=== PATIENT | female | born 1955 | race Caucasian/White ===

== ENCOUNTER 2017-04-20 11:26 | Inpatient (IN) | payer MEDICARE, MEDICAID ==
[~2017-04-20] VITALS: Ht 172.7 cm; Wt 101.5 kg
--- NOTE | ~2017-04-20 | PR ---
[place], [place] PROGRESS NOTE [id number] UN[facility] #: [id number] ROOM: 314 DOCTOR: Anna LOPEZ,FLORI BIRTHDATE: [birth year] DOS: 04/28/2017 SUBJECTIVE: The patient seen and spoke with the staff. Per staff, the patient only slept 2 hours. The reason maybe she got a new roommate and that roommate is more attention seeking than her, so she was worried about that. Reportedly, per nursing staff, she is still religiously preoccupied, delusional, intrusive and disruptive at times, but easily redirectable. The patient was pleasant and cooperative. She thanked me, reporting that I am a cardiothoracic surgeon who actually helped her with heart surgery. She said that she is taking her medication. She reports poor sleep, but said that "I am fine." She denied any side effect from the medication. MENTAL STATUS EXAMINATION: The patient was pleasant and cooperative, described her mood as "fine." Affect broad range, labile. Thought process disorganized. She denied auditory or visual hallucinations. She is delusional. She denied any suicidal ideation, intent or plan. She also denied any homicidal ideation, intent or plan. Insight and judgment impaired. ASSESSMENT: 1. Schizoaffective disorder. 2. MR. PLAN: 1. Continue current medication and care. We may need to readjust the medication. 2. Continue redirection. 3. Anne milieu. FLORI LOPEZ MD CM:PNLUISANA [id number] [phone] Anna LOPEZ 04/28/171935 interface
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
--- NOTE | ~2017-04-20 | PR ---
[place], [place] PROGRESS NOTE [id number] UN[facility] #: [id number] ROOM: 314 DOCTOR: Anna LOPEZ,FLORI BIRTHDATE: [birth year] DOS: 04/30/2017 PSYCHIATRIC PROGRESS NOTE SUBJECTIVE: Patient seen and spoke with the staff. Per staff, patient is a little better today and not as intrusive as before. Med compliant. Slept well last night. Patient was pleasant and cooperative. Reports doing okay. Not seems to be that animated anymore. She reports good sleep and appetite. MENTAL STATUS EXAMINATION: Patient was pleasant and cooperative. Described her mood as "okay." Affect, mood congruent. Thought process, still some disorganization. No overt delusions or paranoia noted. Denied suicidal ideation, intent or plan. She also denied homicidal ideation, intent or plan. ASSESSMENT: 1. Bipolar disorder, mixed type. 2. MR. PLAN: 1. Continue current medication and care. 2. Continue redirection. 3. Anne milieu. 4. Medication management and discharge planning by the regular team. FLORI LOPEZ MD CM:PNTRANS [phone] Anna LOPEZ 05/01/17 0002 interface
--- NOTE | ~2017-04-20 | CON ---
[place], [place] REPORT OF CONSULTATION NAME: DAQUAN MENDEZ UNIT #: [id number] ROOM: 315 DOCTOR: ADEBAYO ELIZALDE ED.D) BIRTHDATE: [birth year] DOS: 04/22/2017 HISTORY OF PRESENT ILLNESS: The patient is a 61-year-old female, referred by Dr. Acosta for competency evaluation. At the present time, this patient is on the [facility] at [facility]. She states that she is . I also spoke at length with her [id number], Olivia, who helps the patient makes decisions. The patient does follow with her regular family physician in [place], [place]. PAST MEDICAL HISTORY: Pertinent for hypertension, history of deep vein thrombosis, seizure disorder and bipolar 1 and intellectual disability -- mild. MEDICATIONS: Include Invega, Coumadin, Tegretol, Lipitor, phenobarbital, doxycycline, Zestril and lisinopril. SOCIAL HISTORY: This patient has no significant substance abuse issues. PHYSICAL EXAMINATION: She was awake, alert and oriented in all three spheres. She did manifest some delusional thoughts at times, but did fairly well during the interview. I asked her if she wanted someone to help make decisions for her and she stated that she wants to remain independent and get some assistance from her sister, but she do not want a guardian. I did speak at length with the pnpwbr-sh-rmf and she states that she was willing to help the patient and I suggested that the patient may want to give her power of ip attorney to make decisions in the event the patient is unable to do so. She will be discussing this with social media coordinator on the behavioral unit tomorrow. In my opinion, this patient is competent to make informed healthcare decisions and she states that she wants to remain so. DIAGNOSES: 1. Bipolar 1 -- mixed. 2. Intellectual disability -- mild. RECOMMENDATIONS: In my opinion, this patient is competent to make informed healthcare decisions. Thank you very much for this consult. [place], [place] REPORT OF CONSULTATION NAME: DAQUAN MENDEZ UNIT #: [id number] ROOM: 315 DOCTOR: ADEBAYO ELIZALDE ED.D) BIRTHDATE: [birth year] ADEBAYO ELIZALDE ED.D CM:CONSTR:REPORT OF CONSULTATION 1526 04/23/17 0424 interface TERRY ACOSTA MD
--- NOTE | ~2017-04-20 | PR ---
[place], [place] PROGRESS NOTE NAME[id number] #: [id number] ROOM: 314 DOCTOR: Anna LOPEZ,FLORI BIRTHDATE: [birth year] DOS: 05/01/2017 PSYCHIATRIC PROGRESS NOTE SUBJECTIVE: The patient seen and spoke with staff. Per staff, the patient is doing well. No behavioral problems or issues. Medication compliant. The patient was pleasant and cooperative. She reports doing well. She reports good sleep and appetite. Denied any depressed mood or hopelessness. She was not as tangential as before. She reports good sleep and appetite. Denied any side effect from the medication. MENTAL STATUS EXAMINATION: The patient was pleasant and cooperative, described her mood as "okay." Affect, mood congruent. Thought process goal directed. No flight of ideas or loosening of association. She denied auditory or visual hallucination. No delusion or paranoia noted. Denied suicidal ideation, intent or plan. She also denied homicidal ideation, intent or plan. ASSESSMENT: 1. Bipolar disorder. 2. Mental retardation. PLAN: 1. Continue current medication and care. 2. Continue redirection. 3. Discharge planning. FLORI LOPEZ MD CM:PARAMJIT [phone] Anna LOPEZ 05/01/17 2336 interface
--- NOTE | ~2017-04-20 | PR ---
[place], [place] PROGRESS NOTE [id number] #: [id number] ROOM: 315 DOCTOR: Anna LOPEZ,FLORI BIRTHDATE: [birth year] DOS: 04/27/2017 PSYCHIATRIC PROGRESS NOTE SUBJECTIVE: The patient seen and spoke with the staff. Per staff, the patient is still labile and intrusive, but much better than before. Medication compliant. No overt behavior problems or issues. The patient was pleasant, cooperative. She said that she slept very well, but then she went on to tangent talking about people whom she does not like and whom she does not want to interact with. She kept on going on different topics about people that she met in her life and how they affected her. She then also talked about the sign language that she learned. MENTAL STATUS EXAMINATION: The patient was pleasant and cooperative, described her mood as "fine." Affect was broad ranged and labile. Thought process goal directed with flight of ideas and loosening of association. She denied auditory or visual hallucination now. No overt delusion or paranoia noted. Somewhat religiously preoccupied. Denied suicidal ideation, intent or plan. She also denied homicidal ideation, intent or plan. Insight and judgment fair to poor. ASSESSMENT: 1. Schizoaffective disorder. 2. MR. PLAN: 1. Continue current medication and care. 2. Continue redirection. 3. Anne milieu. FLORI LOPEZ MD CM:PARAMJIT [phone] Anna LOPEZ 04/27/17 1539 interface
--- NOTE | ~2017-04-20 | PR ---
[place], [place] PROGRESS NOTE NAME: DAQUAN MENDEZ [facility] #: [id number] UNIT #: [id number] ROOM: 314 DOCTOR: Anna LOPEZ,FLORI BIRTHDATE: [birth year] DOS: 04/29/2017 SUBJECTIVE: The patient seen and spoke with the staff. Per staff, the patient is still very labile, irritable at times and psychotic also. The patient was pleasant, cooperative, but as mentioned earlier, she was having significant flight of ideas and disjointed thoughts. She is still religiously preoccupied. She was making gestures and finger and sign language at times and talking about things that does not make any sense. She was not in any acute distress. She reports doing good, otherwise; reported good sleep and appetite. She denied any side effect from the medication. MENTAL STATUS EXAMINATION: The patient was pleasant, cooperative. Described her mood as "okay." Affect, mood congruent, broad range. Thought process disorganized. She denied auditory or visual hallucination. She is delusional and religiously preoccupied. She denied suicidal ideation, intent or plan. She also denied homicidal ideation, intent or plan. Insight and judgment impaired. ASSESSMENT: 1. Bipolar disorder, mixed type. 2. Mitral regurgitation. PLAN: 1. We will increase her Invega to 9 mg in the morning. 2. I will add the Seroquel 100 mg twice a day as a mood stabilizer. 3. Continue other medication. 4. Continue redirection, shirley milieu. FLORI LOPEZ MD CM:PNTRANS 01 Anna LOPEZ 04/30/17 0039 interface
--- NOTE | ~2017-04-20 | PR ---
[place], [place] PROGRESS NOTE NAME: DAQUAN MENDEZ UNIT #: [id number] ROOM: 315 DOCTOR: TERRY RUELAS MD BIRTHDATE: [birth year] DOS: 04/25/2017 CHIEF COMPLAINT: "I am never going back to that house, those people are mean to me, you people are so nice." SUMMARY OF THE VISIT: The patient was interviewed as she sat in the dining area, engaging in activity therapy. I did interrupt and she stopped and engaged in conversation with me. She does appear somewhat depressed, a bit despondent and she is very negative about her current living situation. She seemed rather down and flat. She reports that she sleeps well, but does occasionally wake up at night. The voices have lessened in frequency and intensity and she is tolerating the Invega well. MENTAL STATUS: She is alert and oriented with some mild time gaps. Mood does seem to be depressed. Affect is somewhat flat, blunted with a constricted range. There is no orlando or hypomania. She rates the auditory hallucinations as lessening in frequency and intensity. Memory is intact. PLAN: I will maintain Invega at 6 mg a day. I will add Remeron 15 mg at bedtime to treat the depressive component. Of note, her phenobarb level is extremely low at 4.4 and she has not been experiencing any adverse events. I do believe that this phenobarb is not needed at this point, so I will discontinue and monitor, continue to engage in individual and shirley milieu activity with the ultimate plan to return home or to the least restrictive environment when stable. TERRY RUELAS MD CM:PNTRANS 17 TERRY RUELAS MD 04/25/172116 interface
--- NOTE | ~2017-04-20 | PR ---
[place], [place] PROGRESS NOTE NAME: DA[facility]ENDEZ [facility] #: [id number] UNIT #: [id number] ROOM: 315 DOCTOR: Anna LOPEZ,FLORI BIRTHDATE: [birth year] DOS: 04/26/2017 SUBJECTIVE: Patient seen and spoke with the staff. Per staff, the patient is doing well. No visual problems or issues. Medication compliant. The patient was in the day area. She reports doing well, said that she is taking her medication. She said that the other patient is her best friend, but she does not mind staying into the hospital. MENTAL STATUS EXAMINATION: The patient was pleasant, cooperative. Described her mood as "okay." Affect was broad range. Thought process, goal directed with some flight of ideas, loosening of association. She denied auditory and visual hallucination. Still, she is delusional and religiously preoccupied. Denied any suicidal ideation, intent or plan. She also denied homicidal ideation, intent or plan. ASSESSMENT: 1. Bipolar disorder, mixed type, recurrent, severe with psychotic feature. 2. Mitral regurgitation. 3. Major depressive disorder. PLAN: 1. Continue current medications and care. 2. Continue redirection. 3. Anne milieu. FLORI LOPEZ MD CM:PNTRANS 20 Anna LOPEZ 04/27/17 0247 interface
--- NOTE | ~2017-04-20 | DS ---
[place], [place] DISCHARGE SUMMARY NAME: DAQUAN MENDEZ [facility] #: [id number] UNIT #: [id number] ROOM: 314 DOCTOR: Anna LOPEZ,FLORI BIRTHDATE: [birth year] DOS: 05/02/2017 ADDENDUM Please refer to the history of present illness, past psychiatric history, past medical history, social history, substance abuse history, admission mental status examination and admission diagnosis from the psychiatric H and P. HOSPITAL COURSE: The patient got admitted for stabilization. We started her on medication, which she tolerated well with significant improvement of her mood and symptoms. During the next couple of days, the patient improved significantly. She was not suicidal. She was not homicidal. The treatment team felt that the patient got maximum benefit out of this acute hospitalization and can be discharged to a skilled facility. DISCHARGE DIAGNOSIS: Bipolar disorder. CONDITION AT THE TIME OF DISCHARGE: Stable. INSTRUCTIONS AND FOLLOWUP APPOINTMENT: 1. The patient was advised to take her medication regularly. 2. The patient was advised to go for followup regularly. FLORI LOPEZ MD CM:BERENICE [phone] Anna LOPEZ 05/03/17 0608 interface
--- NOTE | ~2017-04-20 | PR ---
[place], [place] PROGRESS NOTE NAME: DAQUAN MENDEZ UNIT #: [id number] ROOM: 315 DOCTOR: TERRY RUELAS MD BIRTHDATE: [birth year] DOS: 04/22/2017 CHIEF COMPLAINT: "There are demons after me, those people are banging on my duarte, there are demons I believe in Indie Vinos, the ____ savior, I have special colon." SUMMARY OF THE VISIT: The patient was interviewed in the dining area. She engaged readily in conversation and in fact she was rather pressured in her speech. She was intrusive after we had talked with her at length. She continued to attempt to engage us. She was very religiously preoccupied and delusional. She voiced a belief that where she was living was filled with demons and that spirits and that these people were out to get her and hurt her. She believes that she has direct contact with Indie Vinos and that because of this, she has special colon. She is grossly delusional. MENTAL STATUS: She is alert and oriented with time gaps. Mood is expansive and grandiose. She is also rather delusionally fixated on demons and Osmin. Memory for the most part is intact with gaps. PLAN: I will discontinue her Haldol and Benadryl p.r.n. in lieu of Ativan and Geodon. I will discontinue Celexa as this could be fueling orlando. I will start her on Invega 3 mg in the morning to attack the psychotic symptomatology. We will attempt to engage her in individual and shirley milieu activity with the ultimate plan to return to the least restrictive environment when psychiatrically stable. TERRY RUELAS MD CM:PNTRANS [phone] TERRY RUELAS MD 04/22/17 1113 interface
[2017-04-20] MEDS ORDERED: LIPITOR20 MG PO (11:36)
[2017-04-20] MEDS ORDERED: CELEXA20 MG PO (11:40)
[2017-04-20] MEDS ORDERED: Tegretol-Xr 20200 MG PO (11:40)
[2017-04-20] MEDS ORDERED: PHENOBARBITAL15 MG PO (11:41)
[2017-04-20] MEDS ORDERED: COLACE100 MG PO (11:41)
[2017-04-20] MEDS ORDERED: COUMADIN1 M1 PO (11:44)
[2017-04-20] MEDS ORDERED: COUMADIN5 M2 PO (11:57)
[2017-04-20] MEDS ORDERED: LISINOPRIL5 MG PO (12:00)
[2017-04-20] MEDS ORDERED: TYLENOL325 M1 PO (12:02)
--- NOTE | 2017-04-20 13:55 | NUR ---
DAQUAN MENDEZ a 61 year old F admitted via ambulance from the ADMITTING as a emergency 72 hr. hold admission. Arrived on unit at 1355. ALLERGIES: ASPIRIN. Vital signs are: 97.6-75-18 133/55. The client signed the following forms with stated understanding: Authorization For The Release of Medical Information, Clothing List, Consent to Voluntary Admission and Hospitalization, Consent and Release Forms/Receipt of Rights, Acknowledgement of Advance Directive Information, Behavioral Health Consent Form, and Informed Consent of Medications. Admitted under the services of Dr. JESSICA M.D.,[facility]. A search was conducted and hazardous articles were removed. Client was oriented to the unit. ETHAN GUZMÁN
--- NOTE | 2017-04-20 14:03 | NUR ---
DR. LALA NOTIFIED OF NEW ADMISSION, WITH MED LIST AND DIAGNOSIS LIST UPDATED.
[2017-04-20 14:06] VITALS: BP 133/55
--- NOTE | 2017-04-20 15:32 | NUR ---
PATIENT IS ALERT AND ORIENTED X 3, ABLE TO VOICE NEEDS. MOOD IS DEPRESSED AND SAD. THOUGHT PROCESS IS ORGANIZED AND GOAL DIRECTED. PATIENT SLOW TO RESPOND WHEN ASKING QUESTIONS AND RESPONDS APPROPRIATELY TO QUESITONS. DENIES ANY HALLUCINATIONS, DELUSIONS, HI/SI OR PAIN. PATIENT IS CALM AND COOPERATIVE DURING ASSESSMENT; INTERACTIVE WITH OTHER PATIENTS. CONTINENT OF BOWEL AND BLADDER WITH EPISODES OF INCONTINENCE OF BLADDER, NOT ABLE TO MAKE IT TO THE BATHROOM IN TIME. PATIENT REPORTS HAVING A FALL YESTERDAY; BED ALARM ADDED TO BED AND NON-SKID SOCKS, CONTINUES ON Q 15 MINUTE SAFETY CHECKS. CONTINUE TO MONITOR BEHAVIORS FOR ANY OUTBURST. 1:1 PROVIDED TO EXPRESS HER FEELING AND EFFECTIVE.
[2017-04-20 17:29] LABS: HEMATOCRIT 34.1 % (37.0-47.0); HEMOGLOBIN 11.4 g/dl (12.0-16.0); MEAN CELL VOLUME 96.6 fl (81.0-99.0); MEAN CORPUSCULAR HGB 32.3 pg (27.0-31.0); MEAN CORPUSCULAR HGB CONC 33.4 g/dl (33.0-37.0); MEAN PLATELET VOLUME 10.3 fl (9.6-12.3); PLATELET COUNT AUTOMATED 189 10*3/uL (130-400); RED BLOOD COUNT 3.53 10*6/uL (4.10-5.10); RED CELL DISTRI WIDTH 12.9 % (0-14.5); WHITE BLOOD COUNT 13.7 10*3/uL (4.8-10.8)
[2017-04-20 17:38] LABS: INTERNATIONAL NORM RATIO 1.8 (2.0-3.5)
[2017-04-20 17:45] LABS: ALBUMIN 3.2 gm/dl (3.1-4.5); ALKALINE PHOSPHATASE 100 U/L (45-117); BUN 15 mg/dl (7-24); CHLORIDE 111 mmol/L (98-107); CREATININE 1.02 mg/dL (0.55-1.02); POTASSIUM 3.6 mmol/L (3.5-5.1); SGOT/AST 19 IU/L (3-35); SGPT/ALT 20 U/L (12-78); SODIUM 145 mmol/L (136-145); TOTAL PROTEIN 7.1 gm/dL (6.4-8.2)
[2017-04-20 17:52] LABS: ATYPICAL LYMPHS 2 % (0-0); PLATELET SUFFICIENCY NORMAL (NORMAL); TOTAL CELLS COUNTED 100 #CELLS
[2017-04-20 17:58] LABS: CARBAMAZEPINE (TEGRETOL) TOTAL 3.6 ug/ml (4-12)
--- NOTE | 2017-04-20 18:04 | NUR ---
DR WINCHESTER NOTIFIED OF PATIENT'S COUMADIN LEVEL AT 1.8 AND NOTIFIED OF COUMANDIN ORDERS STILL NEED TO BE ORDERED. CURRENT ORDERS: COUMADIN 6MG DAILY EXCEPT SATURDAY, 5 MG TO BE GIVEN ON SATURDAY. OKAY TO GIVEN COUMADIN 5 MG TODAY AND TO PLACE THE ORDERS UNDER DR. CHEUNG PER DR WINCHESTER INSTRUCTION. WITNESSES BY SECOND NURSE, TAWNY REID RN.
[2017-04-20 18:20] LABS: VITAMIN D, 25-HYDROXY 8.5 ng/mL (30-100)
--- NOTE | 2017-04-20 18:29 | NUR ---
DR WINCHESTER NOTIFIED OF ELEVATED WBC 13.7, NOTED TO BE DOWN FROM YESTERDAY'S WBC LAB. WILL UPDATE .
[2017-04-20 19:51] VITALS: BP 140/82
--- NOTE | 2017-04-21 04:26 | NUR ---
WHEN SPEAKING TO PT FOI WAS VERY NOTICABLE. WHEN EDUCATING ON MEDICATION PT LOOKED PAST THIS NURSE AND STARTED TO TALK ABOUT SOMETHING COMPLETELY DIFFERENT THEN WENT TO HOW MUCH SHE LIKED MY SHIRT THEN WENT ON TO TALKING ABOUT DRESSING UP ON FRIDAYS THEN ON SATURDAY AND SATURDAY WOULD GO SEE HOMELESS PEOPLE AND IF THEY DIDNT HAVE IT THEY COULD HAVE IT. PT DENIED ANY SI/HI. Q15 MINUTE SAFETY CHACKS MAINTAINED. PT OBSSESSED ABOUT THE BUYLLYING THAT HAPPENED TO BRING HER HERE TO THE UNIT. POSITIVE REASSURANCE PROVIDED. PLAN. CONTINUE POSITIVE REASSURANCE. MAINTAIN Q15 MINUTE SAFETY CHECKS. ENCOURAGE PT TO SPEAK TO STAFF IF SHE HAS ANY CONCERNS, SI/HI, HALLUCINATIONS OR DELUSIONS.
--- NOTE | 2017-04-21 04:44 | NUR ---
24 HR chart check completed.
--- NOTE | 2017-04-21 06:15 | NUR ---
PT SLEPT GREATER THAN 7 HOURS. NO S/S OF DISTRESS NOTED. NO C/O PAIN.
[2017-04-21 07:26] LABS: CHOLESTEROL 127 mg/dL (<200); HDL CHOLESTEROL 78 mg/dl (40-60); LDL CHOLESTEROL 31 mg/dL (9-159); TRIGLYCERIDES 90 mg/dl (<150); VLDL CHOLESTEROL 18 mg/dL (6-40)
[2017-04-21 07:56] VITALS: BP 125/84
[2017-04-21 08:58] LABS: HEMATOCRIT 34.7 % (37.0-47.0); HEMOGLOBIN 11.6 g/dl (12.0-16.0); MEAN CELL VOLUME 95.6 fl (81.0-99.0); MEAN CORPUSCULAR HGB CONC 33.4 g/dl (33.0-37.0); MEAN PLATELET VOLUME 11.3 fl (9.6-12.3); PLATELET COUNT AUTOMATED 185 10*3/uL (130-400); RED BLOOD COUNT 3.63 10*6/uL (4.10-5.10); RED CELL DISTRI WIDTH 12.9 % (0-14.5); WHITE BLOOD COUNT 11.4 10*3/uL (4.8-10.8)
--- NOTE | 2017-04-21 09:10 | NUR ---
MADE AWARE OF VITAMIN D LEVEL OF 8.5. NEW VERBAL ORDERS WRITTEN DOWN AND READ BACK.
[2017-04-21 09:16] LABS: ATYPICAL LYMPHS 1 % (0-0); TOTAL CELLS COUNTED 100 #CELLS
[2017-04-21 09:17] LABS: PLATELET SUFFICIENCY NORMAL (NORMAL)
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
[2017-04-21 13:32] LABS: BILIRUBIN NEGATIVE (NEGATIVE); BLOOD 2+ (NEGATIVE); CLARITY SL CLOUDY (CLEAR); COLOR YELLOW (YELLOW); GLUCOSE NEGATIVE (NEGATIVE); KETONE NEGATIVE (NEGATIVE); LEUKO ESTERASE 1+ (NEGATIVE); NITRITE NEGATIVE (NEGATIVE); SPECIFIC GRAVITY 1.025 (1.005-1.030); UROBILINOGEN 0.2 E.U./dl (0.2-1.0)
[2017-04-21 13:41] LABS: BACTERIA 1+; RBC 16-20 rbc/hpf (0-2)
--- NOTE | 2017-04-21 16:55 | NUR ---
MADE AWARE PT DID NOT HAVE PT/INR DRAWN TODAY AND IS ORDERED COUMADIN. STATES OK TO GIVE COUMADIN AND HE WILL ORDER PT/INR FOR TOMORROW. ALSO MADE AWARE OF URINALYSIS RESULTS AND ELAVATED WBC OF 11.4.
--- NOTE | 2017-04-21 18:18 | NUR ---
PATIENT VOICING GRANDIOSE DELUSIONS THIS EVENING. STATING "I WILL GET THEM ALL IF THEY MAKE ME UPSET BECAUSE I HAVE A BROTHER WHO IS A SATE BOY," AMONG OTHER DELUSIONAL STATEMENTS. SPOKE WITH ENRIKE, SISTER IN LAW, WITH PATIENT PERMISSION. SISTER KEMAR STATES PATIENT DOES NOT HAVE A BROTHER WHO IS A "STATE BOY OR PHARMACY RESOURCE TECH." SISTER KEMAR ALSO STATES PATIENT HAS BEEN KNOWN TO HAVE "THESE PSEUDO-SEIZURES THAT STOP WHEN YOU START SINGING TO HER OR GIVE HER ANY KIND OF ATTENTION. I'VE NEVER SEEN HER EVER HAVE AN ACTUAL SEIZURE." FAMILY REPORTS THAT PATIENT HAS A LONG HISTORY OF MINIPULATIVE AND ATTENTION SEEKING BEHAVIOR. PATIENT WILL OFTEN TIMES "ACT LIKE SHE IS DOING SIGN LANGUAGE BUT IT'S JUST SO YOU WILL AKNOWLEDGE THAT SHE KNOWS HOW TO DO IT BUT SHE REALLY DOESN'T," PER SISTER IN LAW. ENRIKE VERIFIED THAT PATIENT IS AND HAS BEEN FOR MANY YEARS AND IS ALSO LOW FUNCTIONING AND THEY LIVE TOGETHER IN [place], [place].
[2017-04-21 20:17] VITALS: BP 121/69
--- NOTE | 2017-04-22 04:12 | NUR ---
24 HR chart check completed.
--- NOTE | 2017-04-22 05:32 | NUR ---
Pt exhibited one episode of agression and agitation with peer. Peer was ambulating the halls when pt began sreaming and flailing arms at peer stating he cant be looking at me. pt educated that behavior was not appropriate and that other patinets had rights. pt exhibiting attention seeking behavior, pt demanding to go to bed while proving care and feeding peer. pt then began screaming and flailing arms yelling "I'm having a seizure, I'm havin a seizure". pt removed from dining room and provided with quiet room to calm self. pt then began refusing to speak and using "sign language". 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 pt informed that nurse was in [address] and had observed interaction with peer and that he had not spoke to her. Pt then stated "well i dont want to be seen this way, i need to just go to bed". medication compliant with out difficulty, slept 8 hours with out inturruption. continue to present reality and limit set with patient. continue active POC
[2017-04-22 06:40] LABS: HEMATOCRIT 31.9 % (37.0-47.0); HEMOGLOBIN 10.8 g/dl (12.0-16.0); MEAN CELL VOLUME 95.5 fl (81.0-99.0); MEAN CORPUSCULAR HGB 32.3 pg (27.0-31.0); MEAN CORPUSCULAR HGB CONC 33.9 g/dl (33.0-37.0); MEAN PLATELET VOLUME 10.6 fl (9.6-12.3); PLATELET COUNT AUTOMATED 166 10*3/uL (130-400); RED BLOOD COUNT 3.34 10*6/uL (4.10-5.10); RED CELL DISTRI WIDTH 12.7 % (0-14.5); WHITE BLOOD COUNT 10.3 10*3/uL (4.8-10.8)
[2017-04-22 07:05] LABS: BUN 15 mg/dl (7-24); CHLORIDE 111 mmol/L (98-107); POTASSIUM 3.9 mmol/L (3.5-5.1); SODIUM 145 mmol/L (136-145)
[2017-04-22 07:07] LABS: INTERNATIONAL NORM RATIO 2.6 (2.0-3.5)
[2017-04-22 07:08] LABS: PLATELET SUFFICIENCY NORMAL (NORMAL); TOTAL CELLS COUNTED 100 #CELLS
--- NOTE | 2017-04-22 07:55 | NUR ---
SPOKE WITH AT [phone] REGARDING PT LABS THIS AM. PER DR. WADE HE WILL REVIEW THE LABS. NOTIFIFED OF PT 29.4, INR 2.6. NO FURTHER ORDERS AT THIS TIME.
[2017-04-22 08:00] VITALS: BP 130/70
--- NOTE | 2017-04-22 08:25 | NUR ---
TREATMENT TEAM WAS HEAD WITH THE FOLLOWING: DR. RUELAS, APPLICATION ENGINEER, RN, ATs, SWs. PT'S SISTER WANTS TO LOOK INTO GUARDAINSHIP AND ASKED FOR EVAL FOR GUARDAINSHIP. DR. RUELAS SAID REFER TO DR. ELIZALDE FOR COMPOTENCY.
--- NOTE | 2017-04-22 10:14 | NUR ---
ON UNIT TO ASSESS PT.
--- NOTE | 2017-04-22 11:10 | NUR ---
NOTIFIFED DR. ALVAREZ OFFICE OF PT COMPETNACY EVAL NEEDED.
--- NOTE | 2017-04-22 13:01 | NUR ---
Music Therapy/Reminisce/Trivia Patient was in attendence for group as well paticipated. Patient showed no signs of aggressive behavior and no out burst during group. Patient was easily redirected when she would veer off the subject in group
--- NOTE | 2017-04-22 13:01 | NUR ---
ARLETTE sent updated information so ESTRELLITA at [facility], can update "change of condition" form. for pt. anastasiiarr.
--- NOTE | 2017-04-22 14:40 | NUR ---
PHYSICAL THERAPY PAtient at group at this time. Thank you for this referral. Jovanna Juares,PT
--- NOTE | 2017-04-22 14:54 | NUR ---
Patient was not available for OT evaluation as she was asleep in bed and unable to arouse. OTR will attempt at a later date. Joan Ford OTR/dexter
--- NOTE | 2017-04-22 15:07 | NUR ---
Patient not available for Occupational Therapy evaluation as she was in group therapy session. OTR will recheck at a later date. Joan Ford OTR/dexter
--- NOTE | 2017-04-22 15:44 | NUR ---
Craft and self esteem group Patient attended group with appropriate behavior and no agression towards others. Patient rambled about pentecostal items however eaisly redirected to another topic. Patient able to state " I like to do art to help with stress" when discussing ways to cope with stress and positivie atributes about themselves.
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
[2017-04-22 20:00] VITALS: BP 131/63
--- NOTE | 2017-04-22 20:38 | NUR ---
CLIENT ORIENTED TO PERSON AND MONTH. INTRUSIVE WITH PEERS ATTEMPTING TO ORDER THEM WHERE TO GO AND WHAT TO DO. REDIRECTED TO CARING FOR SELF ONLY WITH MODERATE SUCCESS. CLIENT PLEASENT AND DENIES ANY AGGITATION OR ANGER ISSUES AT THIS TIME. REINFORCED HER TO SEEK ME OUT IF HER MOOD CHANGES. CLIENT SMILED SAID OK AND THREW ME KISSES. MEDICATION COMPLIANT AND ABLE TO MOVE SELF AROUND IN WHEELCHAIR.
--- NOTE | 2017-04-23 01:23 | NUR ---
RESTING QUIET AT THIS TIME. TURNS SELF WITHOUT ASSISTANCE
--- NOTE | 2017-04-23 03:38 | NUR ---
24 HR chart check completed.
--- NOTE | 2017-04-23 05:54 | NUR ---
SLEPT INTERMITTENTLY TONIGHT. AWOKE A FEW TIMES THINKING SHE "WAS ON DUTY" ENCOURAGED CLIENT TO GET SOME REST. MOVES SELF AROUND IN BED WITHOUT DIFFICULTY
[2017-04-23 07:10] LABS: INTERNATIONAL NORM RATIO 2.7 (2.0-3.5)
[2017-04-23 08:20] VITALS: BP 131/79
--- NOTE | 2017-04-23 11:18 | NUR ---
Physical therapy evaluation completed. Patient willing to participate and cooperative, smiling. Patient is admittedly fearful of falling and performs functional mobility with slow, cautious movements. Patient required moderate B UE push to stand from wc; self propells herself in wheelchair; required mod assit turning self in wc in her room amonst the 2 beds; gait with R AND D LAB TECHNICIAN x1 and other hand on HR in hallway 2 x 20ft turning once; slow but steady gait. Transfers and bed mobility are SBA. Patient required reminders to lock wc brakes. It seems as though patient was not using a wc prior to admission and PT goal is to have patient walking rather than using wc by DC. Continue PT for strengthening, gait, transfers, weaning from wc, safety and balance. Patient was left in the activity room with her chair alarm attached in NAD and talking with others in the activity room. Low complexity PT evaluation Thank you for this referral, Sena Garay, PT
--- NOTE | 2017-04-23 13:23 | NUR ---
Q1 Labs Game Patient was in attendence for group as well as particpated. Patient showed no signs of aggressive behavior and no outburst during group. Patient also stayed on task and did not need any redirection
--- NOTE | 2017-04-23 15:36 | NUR ---
LINDA Patient was in attendence for group this afternoon. Patient was appropriate throughout group,laughing and joking with staff and other patients. Patient showed no aggresive behaviors and had no outbursts during group activities
--- NOTE | 2017-04-23 15:42 | NUR ---
Maritza is compliant with prescribed medications. Noted to express some delusions during her conversation with staff and @ intervals is noted to be childlike in responses. She does report that she does not like"people staring @ me and making fun," when encouraged to discuss why she came to the hospital. She has been interactive with select peers and has participated in unit activities throughout the day. No seizure activity is noted. Fall precautions maintained. Dr. Acosta in to see her today. Jessica Connolly also in to see her, as well. PT @ 30.5 and INR @ 2.7. Refer to [facility] flowsheet for specific monitoring.
--- NOTE | 2017-04-23 16:06 | NUR ---
Voluntary admission form reviewed with Maritza and she did sign consent after stating that "It is to get treatment in the hospital."
--- NOTE | 2017-04-23 18:46 | NUR ---
Family members in to see Maritza and brought results of CT of head and MRI of brain completed @ another facility in October of this year. Placed on chart for physician review.
[2017-04-23 20:13] VITALS: BP 112/66
--- NOTE | 2017-04-23 21:45 | NUR ---
PLEASENT AND INTERACTIVE WITH STAFF. MOVES SELF WELL IN WHEELCHAIR. DENIES ANY PROBLEMS TODAY, STATES SHE HAD FUN COLORING PICTURES FOR EVERYONE. DENIES ANY AGGITATION OR ANGER TODAY. DISCUSSED USING COLORING A WAY TO RELIEVE HER ANGER WHEN SHE GOES HOME. CLIENT AGREED.
--- NOTE | 2017-04-24 03:30 | NUR ---
24 HR chart check completed.
--- NOTE | 2017-04-24 06:21 | NUR ---
SLEPT WELL ALL NIGHT. UP ONCE TO VOID
[2017-04-24 06:50] LABS: INTERNATIONAL NORM RATIO 2.9 (2.0-3.5)
--- NOTE | 2017-04-24 07:47 | NUR ---
PHYSICAL THERAPY Maritza seen this AM 1:1 for her physical therapy session. Pt was up in the day room in a wheelchair. Wheeled out into the james, sit/stand and pushing off from her chair with MIN A X 1, standing balance with wheeled walker MIN A X 1. Followed by gait with W/W total 200' X 2, with MIN INFANTRYMAN X 1, with cueing for gait, walker, turn safety. Working in gait balance with gait backwards, right and left side stepping, 360 turn X 2, with MOD INFANTRYMAN X 1 and cueing for everything. Pt taken back to the day room. ALEXANDRU CABALLERO RISK ASSESSMENT CONSULTANT.
[2017-04-24 08:04] VITALS: BP 126/61
--- NOTE | 2017-04-24 08:20 | NUR ---
TREATMENT TEAM WAS WARREN WITH THE FOLLOWING: DR. RUELAS, EARNEST, RESIDENT, SW, RN. MED CHANGES. DR. RUELAS WANTS TO CHECK ON NEUROLOIGIST DUE TO SEIZURE MED NOT AT THERAPUETIC LEVEL.
--- NOTE | 2017-04-24 11:52 | NUR ---
Kain:Nate Scarecrow/Reminiscing Patient was in attendence for group as well as participated. Patient needed redirected back to task several times. Patient showed no aggresive bahavior and had no outbursts throughout group
--- NOTE | 2017-04-24 12:41 | NUR ---
BULL FUCHS UPDATED ON CHEST XRAY RESULTS. NO FURTHER ORDERS AT THIS TIME.
--- NOTE | 2017-04-24 14:55 | NUR ---
PT ALERT TO PERSON,SOMEWHAT PLACE, KNOWING SHE IN THE [facility] BUT UNSURE OF WHERE, AND TIME. PT MED COMPLIANT WITHOUT DIFFICULTY. PT MOOD IS STABLE, PT CALM, INTERACTING WITH STAFF AND PEERS. NO AGGRESSIVE OR ASSAULTIVE BEHAVIOR NOTED. NO HALLUCINATIONS OR DELUSIONS NOTED. PT DENIES ANY HOMICIDAL/SUICIDAL THOUGHTS. PT UP TO WHEELCHAIR, PROPELS SELF THRU HALLS. WHEN ASKED IF PT USES WHEELCHAIR AT HOME PT STATED "NO BUT I HAVE HANDRAILS THEIR I FEEL BETTER HERE USING A WHEELCHAIR." ADVISED PT STAFF IS HERE TO ASSIST HER WITH WALKING IF NEEDED. PT STATED "I'LL ONLY USE MY WHEELCHAIR, IF SOMEONE'S NOT AROUND TO HELP ME." PT CONTINENT OF BOWEL AND BLADDER WITH EPISODES OF INCONTINENCE NOTED, CARE PROVIDED NEEDED. PLAN IS TO ENCOURAGE PT TO UTILIZE POSITIVE COPING SKILLS, MONITOR PT BEAHVIORS ON Q15 MIN SAFETY CHECKS.
--- NOTE | 2017-04-24 18:43 | NUR ---
ESTRELLITA SPOKE WITH JOEL CALVERT. PT IS NOT ALLOWED TO BE ON THE PROPERTY OF [facility]. PT WAS EVICTED FROM [facility] BUT CAN STAY. SW WILL SUBMIT PASRR FOR ATTMEPT FOR SNF DUE TO PT RECEIVING PT. PT HAS NO PLACE TO GO. GREYSON FROM [employer] ([phone]) , IS LOOKING FOR AN APARTMENT. ENRIKE THINKS ASSISTED LIVING WOULD BE OK.
--- NOTE | 2017-04-24 18:46 | NUR ---
ESTRELLITA SPOKE WITH GREYSON KLEIN CM. PT EVICTED FROM [facility] AND NOT ALLOWED ON PROPERTY OF [facility]. GREYSON STATED THERE ARE NO GROUP HOMES AVAILBLE FOR PT. ESTRELLITA INQUIRED ABOUT NF BUT GREYSON DID NOT KNOW OF ANY. ESTRELLITA WILL COMPLETE PASRR AND MAKE REFERRALS. Greyson SAID TO TRY [facility].
--- NOTE | 2017-04-24 18:48 | NUR ---
SE CALLED [facility]. THIS IS A 305 F[address] STAY FOR TRANSITION FROM HOSPITAL TO HOME. PT NOT APPROPRIATE FOR THIS FACILITY.
--- NOTE | 2017-04-24 18:49 | NUR ---
SW SENT REFERRALS TO [facility], [facility], [facility], [facility].
--- NOTE | 2017-04-24 18:49 | NUR ---
SW COMPLETED PASRR AND FAXED TO [facility].
--- NOTE | 2017-04-24 18:50 | NUR ---
MARILY GOMEZ OF [facility] INTERESTD IN TAKING PT. ADMISSION COORDINATOR WILL SPEAK WITH DON AND CALL BACK TOMORROW.
[2017-04-24 19:15] VITALS: BP 110/66
--- NOTE | 2017-04-24 21:06 | NUR ---
24 HR chart check completed.
--- NOTE | 2017-04-25 05:54 | NUR ---
PT HAS BEEN OBSERVED ON Q 15 MIN CHECKS & HAS SLEPT QUIETLY THROUGHOUT THE SHIFT PAST 2200 WITH 1 BRIEF AWAKENING TO GO TO THE BATHROOM WITH 1 STAFF ASSIST.
[2017-04-25 07:20] LABS: HEMATOCRIT 37.3 % (37.0-47.0); HEMOGLOBIN 12.5 g/dl (12.0-16.0); MEAN CELL VOLUME 95.2 fl (81.0-99.0); MEAN CORPUSCULAR HGB 31.9 pg (27.0-31.0); MEAN CORPUSCULAR HGB CONC 33.5 g/dl (33.0-37.0); MEAN PLATELET VOLUME 10.8 fl (9.6-12.3); PLATELET COUNT AUTOMATED 200 10*3/uL (130-400); RED BLOOD COUNT 3.92 10*6/uL (4.10-5.10); WHITE BLOOD COUNT 11.6 10*3/uL (4.8-10.8)
[2017-04-25 07:40] LABS: TOTAL CELLS COUNTED 100 #CELLS
[2017-04-25 07:41] LABS: PLATELET SUFFICIENCY NORMAL (NORMAL)
[2017-04-25 07:49] LABS: ALBUMIN 3.3 gm/dl (3.1-4.5); ALKALINE PHOSPHATASE 100 U/L (45-117); BUN 30 mg/dl (7-24); CHLORIDE 105 mmol/L (98-107); POTASSIUM 3.9 mmol/L (3.5-5.1); SGOT/AST 20 IU/L (3-35); SGPT/ALT 20 U/L (12-78); SODIUM 141 mmol/L (136-145); TOTAL PROTEIN 7.1 gm/dL (6.4-8.2)
[2017-04-25 07:49] LABS: INTERNATIONAL NORM RATIO 3.2 (2.0-3.5)
[2017-04-25 07:52] VITALS: BP 109/62
--- NOTE | 2017-04-25 09:22 | NUR ---
PHYSICAL THERAPY Maritza seen this AM 1:1 for her therapy session. Pt was up in the day room at this time. All transfers were MIN A X 1. Gait total 230' X 2, one sitting rest. Working in gait balance with gait backwards, right and left side stepping, and single leg stand at the window with MOD SMT TECHNICIAN X 1, and verbal cueing for everything. Followed by Maritza wanting to use her bathroom, then back up in ther day room. ALEXANDRU CABALLERO DISTRIBUTION MANAGER.
--- NOTE | 2017-04-25 11:22 | NUR ---
Exercises and remenissing Patient attended group with peers and displayed no signs of of aggression/ outburst. Patient requires frequent verbal cues to stay on task/topic due to dominating conversation/group. With redirection patient able to refocus on task. Patient continues to display progress with group activities.
--- NOTE | 2017-04-25 17:57 | NUR ---
UPON INTERACTIONS WITH DAQUAN, ATTENTION SEEKING BEHAVIORS ARE NOTED, INCLUDING SIGN LANGUAGE "LIKE" MOVEMENTS SELECTIVELY THROUGHOUT THE SHIFT. MORE EASILY REDIRECTABLE DURING BEHAVIORS NOTED. HAS BEEN INTERACTING WITH PEERS ALL THROUGHOUT THE DAY. ATTENDING AND PARTICIPATING IN GROUP THERAPY. MEDICATION COMPLIANT THROUGHOUT THE SHIFT. DENIES ANY SENSORY DISTURBANCES AND NONE ARE NOTED. DENIES ANY SI/HI. NO SEIZURE ACTIVILTY NOTED, SEIZURES PRECAUTIONS MAINTAINED. WILL CONTINUE TO ENCOURAGE PATIENT TO ATTEND AND PARTICIPATE IN GROUP THERAPY AND UTILIZE COPING SKILLS. MONITOR PATIENT VIA Q15 MIN OBSERVATIONS CHECKS. SEE [facility] FLOWSHEET FOR SPECIFIC MONITORING.
[2017-04-25 20:00] VITALS: BP 98/70
--- NOTE | 2017-04-26 05:52 | NUR ---
24 HR chart check completed.
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
--- NOTE | 2017-04-26 07:45 | NUR ---
04/25/17 Afternoon Craft: Dealing with stress Patient was in attendence as well as participated. Patient needed redirected back to craft but had no outbursts or showed no aggressive behaviors
[2017-04-26 07:49] VITALS: BP 130/76
--- NOTE | 2017-04-26 08:48 | NUR ---
PHYSICAL THERAPY Maritza seen this AM 1:1 for her therapy and was up in ther day room. Pt said that she was just not feeling well today but would try. Transfer sit/stand and up on wheeled walker standing balance with MIN A X 1. Gait just 80' X 1 and wanting to sit just very tired and weak she said. After sitting rest gait 80' X 1, W/W MOD CHIEF GROWTH OFFICER X 1, back to the day room to rest and her breakfast. ALEXANDRU CABALLERO CART PUSHER.
--- NOTE | 2017-04-26 09:32 | NUR ---
ESTRELLITA RECEIVED CALL FROM LATOYA BOARD NUCLEAR DESIGN ENGINEER JUAN ANTONIO GUO. SW GAVE INFORMATION REEQUESTED SO THAT PASRR LEVEL 2 CAN BE COMPLETED. ESTRELLITA GAVE NAME OF LATOYA RUBI WITH [facility]. JUAN ANTONIO WILL TRY TO GET A HOLD OF HER. ESTRELLITA GAVE DISCAHRGE PLAN OF GOING TO [place] FOR REHAB THEN TO AN APARTMENT OR ASSISTED LIVING FACILITY. ASSESSMENT SHOULD BE COMPLETED TODAY.
--- NOTE | 2017-04-26 10:59 | NUR ---
Positive Traits Patient was in attendence but kept falling asleep. Patient said she wanted to go to her room and lay down
--- NOTE | 2017-04-26 11:22 | NUR ---
PATIENT HAS BEEN MORE EASILY REDIRECTABLE THIS MORNING. LESS INTRUSIVE AND DISRUPTIVE THIS MORNING. MEDICATION COMPLIANT WITHOUT DIFFICULTY. NO SENSORY DISTURBANCES NOTED. DENIES ANY SI/HI. APPETITE GOOD. NO AGGRESSIVE/COMBATIVE BEHAVIORS. ATTENTION SEEKING BEHAVIORS ARE NOTED, ALTHOUGH LESS SO AT THIS TIME. WILL CONTINUE TO REDIRECT AND REORIENT NEEDED. Q15 MIN OBSERVATION CHECKS PER ORDERS.
--- NOTE | 2017-04-26 15:18 | NUR ---
Reminiscing Patient did not attend group this afternoon. Patient complained of a headache earlier and went to lay down to help relieve it
--- NOTE | 2017-04-26 18:02 | NUR ---
PATIENT WAS OBSERVED SITTING ON THE TOILET WITH EXAGGERATED CRYING NOTED, NO TEAR OBSERVED. PATIENT ATTEMPTING TO USE HAND GESTURES TO COMMUNICATE WITH STAFF AND NOT SPEAKING. THIS NURSE EXPLAINED TO PATIENT THAT SHE MUST SPEAK TO STAFF IN ORDER TO COMMUNICATE HER NEEDS. PATIENT SPEECH NONSENSICAL EXCEPT FOR SAYING "IT STINKS" REPEATEDLY. THIS NURSE PROMPTED PATIENT TO COMPLETE HER HYGIENE NEEDS AND COME OUT TO DAY ROOM. PATIENT STOPPED CRYING AND COMPLETED BATHROOM NEEDS THEN CAME OUT TO DAY ROOM AND WAS CALM AND COOPERATIVE, INTERACTING WITH PEERS. PATIENT WAS THEN OVERHEARD TELLING PEERS "WHEN THEY HEAR ME CRYING THEY COME RUNNING REAL FAST."
[2017-04-26 20:16] VITALS: BP 117/56
--- NOTE | 2017-04-27 04:21 | NUR ---
24 HR chart check completed.
--- NOTE | 2017-04-27 06:28 | NUR ---
PT CONTINUES WITH ATTENTION SEEKING AND INTRUSIVE BEHAVIOR, DUIRING 1-1 PT UNABLE TO STAY FOCUSED ON CARLYN, DECREASING GRANDIOSE DELUSIONS, CONTINUED FOI. MINIMAL REDIRECTION NEEDED FROM INTRUSIVE EPISODES. PT PROVIDED WITH SHOWER AND ORAL CARE. AMBULATING HALLS FREELY WITH WALKER. YELLOW SOCKS SINAGE AND Q 15 MIN CHECKS MAINTAINED AT THIS TIME FOR SAFETY. SEIZURE PRECAUTIONS MAINTAINED. TAKES MEDICATIONS ORDERED STATES " I LIKE IT HERE". PT PARTICIPATED IN HS GROUP AND PROVIDED INSIGHT WITH CONFUSED PEER. CONTINUE POC, CONTINUE TO ENFORCE COPING SKILLS AND LIMIT SETTING. MED EDUCATION PROVIDED PT VERBALIZED VERY MINIMAL UNDERSTANDING, CONTINUE TO REINFORCE. PT SLEPT 8 HOURS WITH FEW INTURRUPTIONS.
[2017-04-27 07:59] VITALS: BP 130/74
--- NOTE | 2017-04-27 09:00 | NUR ---
PHYSICAL THERAPY LATE ENTRY: CONTINUE TOWARDS ORIGINAL GOALS PER ORIGINAL PLAN OF CARE. NEW GOAL DATE 05/07/17. MICHELLE DAVE,PT
--- NOTE | 2017-04-27 09:15 | NUR ---
PATIENT IS ALERT AND ORIENT TO PERSON, PLACE AND TIME, ABLE TO VOICE NEEDS. MOOD IS STABLE, THOUGHT PROCESS IS PREOCCUPIED, VOICING BAHAI THOUGHTS, SINGING SONGS OF ANGLICAN. DENIES ANY HALLUCINATIONS, DELUSIONS, HI/SI OR PAIN. PATIENT IS CALM AND INTERACTIVE WITH OTHER PATIENTS AND STAFF. PATIENT IS AMBULATORY WITH WALKER, HAS STEADY GAIT. INDEPENDANT WITH ACTIVITIES OF DAILY LIVING. GOOD MEAL INTAKES WITH ADEQUATE FLUIDS. CONTINENT OF BOWEL AND BLADDER. MEDICATION COMPLIANT WITH EDUCATION PROVIDED. Q 15 MINUTE SAFETY CHECKS MAINTAINED. NO AGGRESSION NOTED, CONTINUE TO MONITOR FOR AGGRESSIONA AND REDIRECT NEEDED.
[2017-04-27 20:01] VITALS: BP 104/53
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
--- NOTE | 2017-04-28 00:48 | NUR ---
24HR CHART CHECKS COMPLETE
--- NOTE | 2017-04-28 06:15 | NUR ---
PT SLEPT >2HRS WITH FREQUENT INTERRUPTIONS. REFER TO FLOWSHEET FOR ADDITIONAL INFO
[2017-04-28 08:08] VITALS: BP 150/69
--- NOTE | 2017-04-28 11:46 | NUR ---
PT ALERT TO PERSON,PLACE AND TIME. PT MED COMPLIANT WITHOUT DIFFICULTY, MED EDUCATION PROVIDED. PT MOOD IS STABLE, PT APPEARS ANXIOUS AT TIMES. PT RESTLESS, PACING THE HALLS, UP AND DOWN OUT OF THE CHAIR. PT DENIES ANY HOMICIDAL/SUICIDAL THOUGHTS. NO HALLUCIANTIONS NOTED. PT HAS GRANDIOSE AND PARANOID DELUSIONS, STATING "IF ENRIKE CALLS, I WANT THE CALL, IT MUST BE AN EMERGENCY IF SHE CALLS, SOMETHING MUST HAVE HAPPENED. PT STATING MULTIPLE TIMES THAT SHE HAS BEEN HERE SINCE SHE WAS YOUNG. PRESENTED RELAITY TO PT, PT STATED "OH I KNOW THAT, THATS NOT WHAT I MEANT." NO AGGRESSIVE OR COMBATIVE BEHAVIOR NOTED. PT AMBULATORY WITH WHEELED WALKER, GAIT STEADY. PT CONTINENT OF BOWEL AND BLADDER WITH EPISODES OF INCONTINENCE NOTED, CARE PROVIDED NEEDED. PT SHOWERED THIS SHIFT. PLAN IS TO ENCOURAGE PT TO PARTICIPATE IN GROUPS/ACTIVITIES, MONITOR PT BEHAVIORS ON Q15 MIN SAFETY CHECKS, ENCOURAGE PT TO UTILIZE POSITIVE COPING SKILLS.
[2017-04-28 19:48] VITALS: BP 116/62
--- NOTE | 2017-04-28 22:13 | NUR ---
P#1--DISRUPTIVE AND INTRUSIVENESS WITH PEERS P- REORIENT TO PLACE AND THAT SHE IS A PATIENT NOT AN EMPLOYEE. REDIRECTED THAT SHE IS NOT PERMITTED TO BOSS PEERS AROUND P- UNDERSTAND THAT SHE IS A PATIENT AND ACCEPT HELP IN THAT COMPACITY. BE OPEN TO PARTICIPATING A CLIENT NOT AN EMPLOYEE. UNDERSTAND PERSONAL SPACE.
--- NOTE | 2017-04-28 23:57 | NUR ---
HAS BEEN UP TWICE AT THE NURSES DESK TELLING US SHE WENT TO THE BATHROOM. INFORMED HER SHE HAS HER WALKER AND DOESN'T HAVE TO LET US KNOW EACH TIME. STATES SHE HAS TO TELL THEM AT THE OTHER PLACE. REINFORCED SHE IS ABLE TO DO THINGS WITHOUT CHECKING IN SHE IS GETTING BETTER. VERBALIZED UNDERSTANDING. TOLD HER TO CALL US IF SHE HAS ANY PROBLEMS OTHERWISE
--- NOTE | 2017-04-29 02:04 | NUR ---
24 HR chart check completed.
--- NOTE | 2017-04-29 06:42 | NUR ---
SLEPT WELL PAST 2300PM
--- NOTE | 2017-04-29 08:06 | NUR ---
ESTRELLITA left VM for Althea Yeboah of [place] and Terrie Sotelo at [facility] to see if they deceided whether to accpet Pt at their facility.
[2017-04-29 08:56] VITALS: BP 138/81
--- NOTE | 2017-04-29 09:13 | NUR ---
PHYSICAL THERAPY Mrs Lowe seen this AM 1:1 for her therapy, Pt up in the day room. Transafer sit/stand CGA X 1, no LOB. Up on wheeled walker standing balance MIN A X 1. Gait total 240' X 2, one sitting rest with this. Working on gait balance with gait backwards, right and left side stepping, 360 turn with MOD BAIL BOND AGENT X 1, and cueing for each, then sitting rest. End with act Ex to bilateral LE of marching, LAQ's, and ankle pumps with verbal cueing for each Ex working in 20 reps each. Pt back in the day room for her breakfast and is improving. ALEXANDRU CABALLERO SERVICE AND REPAIR SUPERVISOR.
--- NOTE | 2017-04-29 10:02 | NUR ---
Treatment Team was held with the following: Dr. Paniagua (phone), RNs, At, SWs. MADELINE received back and approved for [facility] placement. Lila Yeboah of [place] and Deepak at [facility] are interested in Pt.
[2017-04-29 10:26] LABS: INTERNATIONAL NORM RATIO 3.2 (2.0-3.5)
--- NOTE | 2017-04-29 12:55 | NUR ---
Exercising/Reminiscing/Positive Traits. Patient did attend group this afternoon as well as participated. Patient needed redirected back to topics several times. Patient showed no aggresive behaviors or outburst during group
--- NOTE | 2017-04-29 13:24 | NUR ---
SW RECEIVED CALL BACK FROM ELLE AT [facility] INFORMING THAT FAC[facility]. ADAL STATED THAT IT WOULD BE EASIER FOR EVERYONE IF PT STAYED IN [place] WHERE SHE IS RECEIVING DD SERVICES THAN TO SWITCH IT BACK AND FORTH.
--- NOTE | 2017-04-29 15:42 | NUR ---
Craft and postive trait group Patient attended and actively participated in group. Patient able to verbalize positive traits about self and accept postive things being said. Patient requires frequent redirection back to task.
--- NOTE | 2017-04-29 18:51 | NUR ---
PATIENT IS ALERT AND CONFUSED MOST OF THE SHIFT. MOOD IS LABILE, RANGING FROM SINGING WITH ANIMATED AFFECT TO CRYING AND SAD. NO AGGRESSIVE BEHAVIORS. EASILY REDIRECTABLE WITH ATTENTION SEEKING BEHAVIORS THAT ARE LESSENED THIS SHIFT. DENIES ANY SI/HI THIS SHIFT. MEDICATION COMPLIANT WITHOUT DIFFICULTY. APPETITE GOOD THIS SHIFT, TAKING FLUIDS WELL. WILL CONTINUE TO ENCOURAGE PT TO ATTEND AND PARTICIPATE IN GROUP THERAPY. REDIRECT AND REORIENT THROUGHOUT THE SHIFT AND NEEDED.
[2017-04-29 20:04] VITALS: BP 108/62
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
--- NOTE | 2017-04-30 05:53 | NUR ---
24 HR chart check completed.
--- NOTE | 2017-04-30 06:53 | NUR ---
Q 15 MINUTE SAFETY CHECKS MAINTAINED. SLEPT > 6 HOURS THIS SHIFT. VOICES NO COMPLAINTS OF PAIN OR DISCOMFORT
[2017-04-30 08:12] VITALS: BP 121/63
--- NOTE | 2017-04-30 09:09 | NUR ---
PHYSICAL THERAPY Pt seen this AM sitting on the side of her bed independent. Transfer sit/stand, standing balance MIN A X 1. Followed by working on Pt's gait balance with gait backwards, right and left side stepping, 360 turn X 2, with MOD BOSS MINER X 1, cueing for everything with sitting rest. Then gait with wheeled walker 220' X 2, CG to MIN A X 1, no LOB. End with act Ex to bilateral LE of marching, LAQ's, ankle pumps X 20 reps each with cueing for each. Followed by taking Pt down to the day room. ALEXANDRU CABALLERO INNERSOLE MAKER.
--- NOTE | 2017-04-30 09:25 | NUR ---
TREATMENT TEAM WAS HELD WITH THE FOLLOWING: dR. LOPEZ (PHONE), RNs, AT, sw. DR. LOPEZ STATED THAT PT WAS NOT READY TO GO YET. PT PLEASANT AND COPPERATIVE.
--- NOTE | 2017-04-30 10:44 | NUR ---
BULL BIRD CNP ON UNIT TO SEE PATIENT.
--- NOTE | 2017-04-30 11:01 | NUR ---
PATIENT IS ALERT AND ORIENTED TO PERSON, PLACE AND TIME; ABLE TO VOICE NEEDS. RESPIRATIONS ARE EASY, NON-LABORED ON ROOM AIR. MOOD IS STABLE AND EUTHYMIC AT TIMES. DENIES ANY HALLUCINATIONS, DELUSIONS, HI/SI OR PAIN. INDEPENDANT WITH ACTIVITIES OF DAILY LIVING, AMBULATORY WITH WALKER; STEADY GAIT. INTERACTIVE WITH STAFF AND OTHER PATIENTS. MEDICATION COMPLAINT WITH EDUCATION PROVIDED. APPETITE IS GOOD WITH ADEQUATE FLUIDS. Q 15 MINUTE SAFETY CHECKS MAINTAINED. NO AGGRESSION NOTED SO FAR THIS SHIFT. MONITOR FOR AGGRESSION AND REDIRECT NEEDED.
--- NOTE | 2017-04-30 11:33 | NUR ---
[facility] Bin Patient attended group with appropriate behaviors. Patient able to state postive items about self and others with minimal redirection towards group. Patient stated " I had a seizure last night" during group when others was answering questions. When asked if she reported to nursing she stated "no".
[2017-04-30 20:00] VITALS: BP 108/58
--- NOTE | 2017-05-01 04:43 | NUR ---
24 HR chart check completed.
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
--- NOTE | 2017-05-01 06:58 | NUR ---
Q 15 MINUTE SAFETY CHECKS MAINTAINED. SLEPT > 8 HOURS THIS SHIFT. VOICES NO COMPLAINTS OF PAIN OR DISCOMFORT AT THIS TIME
--- NOTE | 2017-05-01 07:43 | NUR ---
04/30/17 Afternoon Self esteem Story/Coping Skills Jeopardy Patient did attend group as well as participated. Patient needed redirected back to subject several times. Patient showed no aggressive behaviors or outbursts while in group.
[2017-05-01 08:00] VITALS: BP 112/71
--- NOTE | 2017-05-01 11:08 | NUR ---
PHYSICAL THERAPY Maritza seen this AM 1:1 for her therapy. Transfer sit/stand and up on wheeled walker CG X 1, no LOB. Followed by gait 300' X 1, wheeled walker stop/start gait no LOB, sit to rest. Then working on gait balance with gait backwards right and left side stepping, 360 turn MOD HEARING EXAMINER X 1, one sitting rest. Followed by another gait 300' X 1, with W/W CG X 1, no LOB with this. End with going over her act Ex to bilateral LE in sitting with cues for each Ex. Pt gait back to the day room. ALEXANDRU CABALLERO OSTEOPATHIC NEUROLOGIST.
--- NOTE | 2017-05-01 11:12 | NUR ---
Reminiscing Patient was in attendence for group this morning as well as participated. Patient did need redirected back to subject several times. Patient showed no signs of aggressive behaviors or outburst throughout group
--- NOTE | 2017-05-01 15:49 | NUR ---
Identifying My strengths Patient was in attendence this afternoon as well as participated. Patient needed redirection back to topic just a few times during the group. Patient showed no aggressive behavior or outburst throughout group
[2017-05-01] MEDS ORDERED: MIRTAZAPINE15 M2 PO (18:10)
[2017-05-01] MEDS ORDERED: INVEGA9 MG PO (18:10)
[2017-05-01] MEDS ORDERED: QUETIAPINE FUM100 M3 PO (18:10)
[2017-05-01] MEDS ORDERED: CARBAMAZEPINE100 MG PO (18:10)
--- NOTE | 2017-05-01 18:29 | NUR ---
IMPROVEMENT IS ATTENTION SEEKING BEHAVIORS NOTED THIS SHIFT. PATIENT HAS BEEN CALM AND COPERATIVE AND MORE EASILY REDIRECTABLE WITH STAFF. HAS MADE GRANDIOSE STATEMENT X2 THIS SHIFT. MOOD IS STABLE AND EUTHYMIC. ATTENDING AND PARTICIPATING IN GROUP THERAPIES. MEDICATION EDUCATION COMPLETED WITH MOD EFFECT. MEDICATION COMPLIANT WITHOUT DIFFICULTY. POSITIVE PEER INTERACTIONS NOTED. APPETITE GOOD THIS SHIFT, TAKING FLUIDS WELL. MORE INDEPENDENT WITH ADLS. HAS BEEN CALM AND COPERATIVE TODAY, SPENDING MOST OF HER TIME OUT IN DAY ROOM. DENIES ANY SI/HI. DENIES ANY SENSORY DISTURBANCES AND NONE ARE NOTED. NO EPISODES OF DROOLING NOTED. DENIES ANY SIDE EFFECTS TO MEDICATIONS. WILL CONTINUE TO REDIRECT NEEDED. Q15 MIN OBSERVATION CHECKS PER ORDERS. SEE [facility] FLOWSHEET FOR SPECIFIC MONITORING.
[2017-05-01 19:21] VITALS: BP 110/68
[2017-05-02 05:31] LABS: THYROID STIM HORMONE (HS) 1.39 uIU/ml (0.358-4.75)
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
--- NOTE | 2017-05-02 06:09 | NUR ---
24 HOUR CHART CHECK COMPLETED.
[2017-05-02 06:27] LABS: VITAMIN D, 25-HYDROXY 23.8 ng/mL (30-100)
[2017-05-02 08:00] VITALS: BP 110/75
--- NOTE | 2017-05-02 09:21 | NUR ---
TREATMETN TEAM WAS HELD WITH THE FOLLOWING: DR. LOPEZ (PHONE), RNs, AT, SW. PT TO BE DISCHARGED TO [facility] AT [facility].
--- NOTE | 2017-05-02 09:28 | NUR ---
PHYSICAL THERAPY Patient seen this am 1:1 for therapy sitting at breakfast room table and was very pleasant this morning. Patient performed seated B LE therex, all planes, x 20 reps each to increase LE strength, followed by gait training with use of wh walker, SBA x 1, 250'x 2 while demonstrating slow, steady gait pattern with even stride. Patient also demosntrated unsteady balance during 180 degee turns and required v/c for safe walker / step sequence. Patient returned to breakfast room table and remained under staff Supervision. Will continue per POC to improve functional mobilty and transfers as tolerated. Tony Winchester, DRAMATIC CRITIC
--- NOTE | 2017-05-02 10:11 | NUR ---
PATIENT IS ALERT AND ORIENTED WITH PERIODS OF CONFUSION. SLOW TO PROCESS MOST OF THE TIME. NO AGGRESSION NOTED. DENIES ANY SI/HI OR PLAN. DENIES ANY SENSORY DISTURBANCES AND NONE ARE NOTED. MINIMAL ATTENTION SEEKING BEHAVIORS NOTED, EASILY REDIRECTABLE DURING THESE TIMES. MOOD IS STABLE AND EUTHYMIC, WITH ANIMATED AFFECT MOST OF THE TIME. MEDICATION COMPLIANT WITHOUT DIFFICULTY. MET ALL TREATMENT GOALS FOR DISCHARGE. APPETITE GOOD FOR MEALS, TAKING FLUIDS WELL. POSITIVE PEER INTERACTIONS NOTED ALTHOUGH CAN BE MILDLY INTRUSIVE WITH PEERS, EASILY REDIRECTABLE. ATTENDING AND PARTICIPATING IN GROUP THERAPY THGOUGHOUT THE SHIFT. SEE [facility] FLOWSHEET FOR SPECIFIC MONITORING.
--- NOTE | 2017-05-02 13:24 | NUR ---
Fly/Surinder Patient did attend group this morning as well as participated. At one point patient needed to leave room due to being upset that another patient was leaving. Patient did return to group after she was able to calm herself. While in group patient exhibited no aggressive behaviors or outbursts
--- NOTE | 2017-05-02 13:55 | NUR ---
ON UNIT AND MADE AWARE PATIENT TO BE DISCHARGE THIS AFTERNOON AND MEDICAL MEDICATION NEED TO BE RECONCILED FOR DISCHARGE.
--- NOTE | 2017-05-02 14:00 | NUR ---
ESTRELLITA SPOKE WITH Honorio AT [facility] AT [facility]. HONORIO WILLING TO ACCEPT PT AND REQUESTED PASRR BE SENT SENT. ESTRELLITA FAXED PASRR AND RESULTS TO FACILITY. ESTRELLITA CALLED DD BO[employer] TO GET THOSE RESUILTS AND FAXED THEM TO FACILITY. TRANSPORATION WAS ARRANGED TO TRANSPROT PT TO FACILTY. JOEL CALVERT WAS NOTIFIED THAT PT WAS BEING TRANSPORATED AROUND 7PM. ENRIKE TO MEET PT AT FACILITY. PT TO BE DISCHARGED MARCIA BLISS AT [facility].
[2017-05-02] MEDS ORDERED: Vitamin D PO (14:27)
--- NOTE | 2017-05-02 15:40 | NUR ---
Fears Patient was in attendence for group as well as participated. Patient needed redirectied back to topic several times but showed no aggresive behaviors or outbursts during group
--- NOTE | 2017-05-02 15:50 | NUR ---
MADE AWARE OF INCORRECT D/C MEDICATION REC. MADE AWARE OF SPECIFIC DISCREPANCIES. STATES WILL FIX MED REC.
[2017-05-02] MEDS ORDERED: COUMADIN5 M2 PO (15:53)
[2017-05-02] MEDS ORDERED: COUMADIN1 M1 PO (15:53)
--- NOTE | 2017-05-02 16:23 | NUR ---
ATTEMPT MADE TO GIVE NURSE TO NURSE. LEFT NAME AND NUMBER WITH MESSAGE TO CALL UNIT FOR NURSE TO NURSE REPORT WITH [facility]. AWAITING RETURN CALL AT THIS TIME.
--- NOTE | 2017-05-02 16:33 | NUR ---
NURSE TO NURSE GIVEN TO YOGI TORREZ [facility] AT [facility]. MEDICATION REVIEWED. ALL QUESTIONS ANWSERED.
--- NOTE | 2017-05-03 07:56 | NUR ---
PHYSICAL THERAPY CO-SIGN I approve of the Phyical Therapy notes written above. MICHELLE DAVE PT
== END 2017-05-02 18:14 | disposition other institution (70) | DRG 885 ==
LOC: 3N 11:26
PROVIDERS: Emergency Medicine; Family Medicine Adult Medicine; Psychiatry & Neurology Psychiatry; Registered Nurse; ADMIT Psychiatry & Neurology Psychiatry
DX: F31.64 Bipolar disorder, current episode mixed, severe, with psychotic features (principal); F70 Mild intellectual disabilities; N39.0 Urinary tract infection, site not specified; I34.0 Nonrheumatic mitral (valve) insufficiency; R79.1 Abnormal coagulation profile; G40.909 Epilepsy, unspecified, not intractable, without status epilepticus; T45.515A Adverse effect of anticoagulants, initial encounter; I10 Essential (primary) hypertension; Z86.718 Personal history of other venous thrombosis and embolism; Z79.01 Long term (current) use of anticoagulants; Z90.710 Acquired absence of both cervix and uterus; Z90.49 Acquired absence of other specified parts of digestive tract; Z83.3 Family history of diabetes mellitus; Z79.899 Other long term (current) drug therapy

== ENCOUNTER 2017-07-20 22:45 | Inpatient (IN) | payer MEDICARE, MEDICAID ==
[~2017-07-20] VITALS: Ht 172.7 cm; Wt 101.6 kg
--- NOTE | ~2017-07-20 | PR ---
[place], [place] PROGRESS NOTE NAME: DAQUAN MENDEZ UNIT #: [id number] ROOM: 317 DOCTOR: TERRY RUELAS MD BIRTHDATE: [birth year] DOS: 07/25/2017 CHIEF COMPLAINT: "I am too tired. I do not want to eat." SUMMARY OF THE VISIT: The patient was interviewed in the dining area. She was reclining in a Zoila chair with her food in front of her. She engaged minimally in conversation and reported that she was too tired to eat and preferred to go back to bed. Nurses report that yesterday she continued to exhibit significant mood lability and continued to throw herself purposefully on the floor or hit herself in the head. She required p.r.n. intervention, which eventually worked, but has now led to some daytime somnolence. MENTAL STATUS: She is alert and oriented with time gaps. Mood does still seem to be labile. Affect is inappropriate. There are no overt auditory or visual hallucinations, although it is very difficult to get information from her. Memory has gaps. PLAN: Given the fact that she is on a good dose of Risperdal, but continues to exhibit mood lability and agitation, I will discontinue the Risperdal due to ineffectiveness and start her on Vraylar 1.5 mg at bedtime. We will attempt to limit the p.r.n. usage if at all possible to prevent somnolence. Engage in individual and shirley milieu activity with the ultimate plan to return to the least restrictive environment when psychiatrically stable. TERRY RUELAS MD CM:PNTRANS [id number] TERRY RUELAS MD 07/25/17 0845 interface
--- NOTE | ~2017-07-20 | PR ---
[place], [place] PROGRESS NOTE [id number] UNIT #: [id number] ROOM: 317 DOCTOR: Anna LOPEZ,FLORI BIRTHDATE: [birth year] DOS: 08/04/2017 PSYCHIATRIC PROGRESS NOTE SUBJECTIVE: Patient seen and spoke with the staff. Per staff, patient is doing well. No behavioral problems or issues, med compliant and is going to get discharged soon. Patient is pleasant and cooperative. She said that her mood is "pretty good." She says she slept well and her appetite is good. She denied any problems or concerns. MENTAL STATUS EXAMINATION: Patient was pleasant, cooperative. Described her mood as "good." Affect, mood congruent. Thought process disorganized at times. She denied auditory or visual hallucination. No delusion or paranoia noted. She denied suicidal ideation, intent or plan. She also denied homicidal ideation, intent or plan. ASSESSMENT: 1. Brief psychotic disorder. 2. Schizoaffective disorder. PLAN: 1. Continue current medication and care. 2. Encourage activity and groups. 3. Final medication management and discharge plan by the regular team. FLORI LOPEZ MD CM:PARAMJIT [phone] Anna LOPEZ 08/04/172324 interface
--- NOTE | ~2017-07-20 | PR ---
[place], [place] PROGRESS NOTE [id number] #: [id number] ROOM: 317 DOCTOR: Anna LOPEZ,FLORI BIRTHDATE: [birth year] DOS: 08/03/2017 SUBJECTIVE: The patient seen and spoke with the staff. Per staff, the patient is doing well. No behavioral problems or issues. Medication compliant. Medicine is following her for PT and INR. She slept 7-8 hours last night. The patient was pleasant, cooperative. She was in the day area. She denied depressed mood or hopelessness. She reported good sleep and appetite. She denied any side effect from the medication. She was not in any distress. MENTAL STATUS EXAMINATION: The patient was pleasant and cooperative. Described her mood as "good." Affect, mood congruent. Thought process goal directed. No flight of ideas or loosening of association. She denied auditory or visual hallucination. No delusion or paranoia noted. She denied suicidal ideation, intent or plan. She also denied homicidal ideation, intent or plan. ASSESSMENT: 1. Schizoaffective disorder. 2. Brief psychotic disorder. PLAN: 1. Continue current medication and care. 2. Encourage activity and groups. 3. Continue redirection. 4. Final medication management and this explained by the regular team. FLORI LOPEZ MD CM:PARAMJIT [id number] Anna LOPEZ 08/03/17 2346 interface
--- NOTE | ~2017-07-20 | PR ---
[place], [place] PROGRESS NOTE NAME: [id number] UN[facility] #: [id number] ROOM: 317 DOCTOR: TERRY RUELAS MD BIRTHDATE: [birth year] DOS: 07/29/2017 CHIEF COMPLAINT: "I don't want breakfast." SUMMARY OF THE VISIT: The patient was interviewed as she sat in the dining area. She was waiting for breakfast tray and when I asked her if she was interested, she told me she was not hungry and did not want to be bothered. She continues to look very regressed and her responses now are very short. There is a great deal of processing slowness and then her responses tend to be short and dismissive. Nurses report that she is not as interactive as she had been previously and she has not been ambulating like she did prior to her admission. MENTAL STATUS: She is alert and oriented to self, possibly place, certainly not to time. Mood seems overwhelmingly depressed. Affect is flat and blunted with a constricted range. There is no symptom suggestive of hypomania or orlando. Likewise, there are no overt auditory or visual hallucinations present. No delusions are voiced. No paranoia is present. She does process slowly and her thoughts are sparse. Short term memory has gaps. PLAN: A screening CBC with diff showed a markedly elevated white count of 12.7. I will check a UA and a chest x-ray to rule out infection and then allow the hospitalist to intervene if needed. I will lower her Vraylar from 6 mg at bedtime to 3 mg at bedtime to see if we can lessen some of the extrapyramidal symptoms that seem to be literally weighing her down. We will obtain a swallow evaluation as well. Engage in individual and shirley milieu activities, returning to the least restrictive environment when psychiatrically stable. TERRY RUELAS MD CM:PNTRANS [id number] TERRY RUELAS MD 07/29/17 1048 interface
--- NOTE | ~2017-07-20 | PR ---
[place], [place] PROGRESS NOTE NAME: DAQUAN MENDEZ UNIT #: [id number] ROOM: 317 DOCTOR: TERRY RUELAS MD BIRTHDATE: [birth year] DOS: 07/22/2017 CHIEF COMPLAINT: "Good morning. What do I do." SUMMARY OF THE VISIT: The patient was interviewed first in the hallways and later as she was about to sit down in the dining area. She seemed to have a great deal of processing difficulty. She could not tell me exactly how long she has been here or why she came here or even where she was prior to coming in here. When I did toss out the name of Deepak at [facility], she in a perplexed manner nodded her head and said that might be right. Staff note that they attempted to have her sit down for breakfast, she took 1 bite of yogurt and then got up and started wandering around pacing again. It has been very hard to get her redirected and sustaining focus enough to be able to have . MENTAL STATUS: She is alert and oriented to self, possibly place, but not time. Mood seems to be somewhat labile. Affect at times is inappropriate. There is the hint of some manic to hypomanic behavior. Memory seems very poor. PLAN: At this point, I will check valproic acid level in the morning. I will start her on Exelon patch 4.6 mg daily due to the cognitive issues that she seems to be experiencing. We will engage her in individual and shirley milieu activity with the plan then to return to the least restrictive environment when psychiatrically stable. TERRY RUELAS MD CM:PNTRANS [phone] TERRY RUELAS MD 07/22/17 0954 interface
--- NOTE | ~2017-07-20 | PR ---
[place], [place] PROGRESS NOTE NAME: DAQUAN MENDEZ UNIT #: [id number] ROOM: 317 DOCTOR: TERRY RUELAS MD BIRTHDATE: [birth year] DOS: 07/28/2017 CHIEF COMPLAINT: "I am cold." SUMMARY OF THE VISIT: The patient was interviewed in the dining area where she sat in a Zoila chair and she was shivering or tremoring. She did have some bilateral upper extremity tremor, but also reported that she was cold and requested a heated blanket. Nurses report that she is not sleeping well at night either. Her appetite remains suspect. MENTAL STATUS: She is alert and oriented with gaps. Mood does seem to be more euthymic. Affect is more appropriate. There is no hypomania or orlando. There is no overt agitation or aggression. Memory has gaps. PLAN: I will discontinue Remeron due to ineffectiveness and start her on trazodone 150 mg at bedtime to combat both depression and to aid sleep. I will start Artane 2 mg twice a day to decrease the tremor and renew her Ativan p.r.n. in case she requires intervention. TERRY RUELAS MD CM:PNTRANS [id number] TERRY RUELAS MD 07/29/17 0036 interface
--- NOTE | ~2017-07-20 | CON ---
[place], [place] REPORT OF CONSULTATION NAME: DAQUAN MENDEZ UNIT #: [id number] ROOM: 317 DOCTOR: ADEBAYO ELIZALDE ED.D (WILLARD) BIRTHDATE: [birth year] DOS: HISTORY OF PRESENT ILLNESS: The patient is a 62-year-old female referred by Dr. Acosta for competency evaluation. At the present time, this patient is on the senior behavioral health unit at [facility]. She had a great deal of difficulty communicating today. She only indicated that she was after I asked her direct question. She had difficulty retrieving information. She does have a durable power of prosecuting attorney for healthcare and in my opinion, this power of prosecuting attorney should be utilized due to the fact that this patient is really not competent to make informed healthcare decisions at this time. PAST MEDICAL HISTORY: Pertinent for history of DVT, seizure disorder, bipolar 1, intellectual disability -- mild and hypertension. MEDICATIONS: Include Exelon patch, Risperdal, Remeron, and Ativan. SOCIAL HISTORY: This patient does not have any substance abuse to my knowledge. PHYSICAL EXAMINATION: She was awake, alert and oriented to person only. She had no idea where was and she did not know the year. She does not know who her physician is or why she is here. She is clearly not able to make independent decisions at this time. DIAGNOSES: 1. Bipolar 1 -- mixed. 2. Intellectual disability -- mild. RECOMMENDATIONS: In my opinion, this patient is not competent to make informed healthcare decisions and all decision should be made by her healthcare power of prosecuting attorney. Thank you very much for this consult. ADEBAYO ELIZALDE ED.D CM:CONSTR:REPORT OF CONSULTATION 1225 07/23/17 1423 interface TERRY ACOSTA MD
--- NOTE | ~2017-07-20 | PR ---
[place], [place] PROGRESS NOTE NAME: DAQUAN MENDEZ UNIT #: [id number] ROOM: 317 DOCTOR: TERRY RUELAS MD BIRTHDATE: [birth year] DOS: 07/30/2017 CHIEF COMPLAINT: "Good morning, how are you?" SUMMARY OF THE VISIT: The patient was interviewed as she was being wheeled down into the breakfast area. She stopped in the james to engage in brief conversation with me. She was much more alert and goal directed in her conversation this morning than she was yesterday. Nurses report that she seemed to perk up after receiving a dose of ____ yesterday and was ambulating with assistance yesterday as well. MENTAL STATUS: She is alert and oriented to person, possibly place, not time. Mood does seem to be slightly improved and more euthymic today. Affect is more appropriate. There is still a great deal of processing difficulty and slowness to speak and her thoughts are rather sparse. Memory for short term events is poor. PLAN: I will increase the Artane to 2 mg t.i.d. from 2 mg b.i.d. as she still is having some residual upper body tremors. We will maintain her other psychotropics. We will engage in individual and shirley milieu activity, returning to [facility] or to the least restrictive environment when psychiatrically stable. TERRY RUELAS MD CM:PNTRANS 0854 TERRY RUELAS MD 07/30/1730 interface
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
--- NOTE | ~2017-07-20 | PR ---
[place], [place] PROGRESS NOTE NAME: DAQUAN MENDEZ UNIT #: [id number] ROOM: 317 DOCTOR: TERRY RUELAS MD BIRTHDATE: [birth year] DOS: 07/27/2017 CHIEF COMPLAINT: "I don't want anything, just leave me alone." SUMMARY OF THE VISIT: The patient was interviewed in the dining area where she sat in front of what looked like an untouched breakfast. She was very negative and did not want to be bothered, stating she did not want to eat and wanted to be left alone. Nurses report she was yelling out considerably yesterday, but did redirect as the day progressed. The Vraylar did seem to be having an improvement over the Risperdal in her overall sense of well being. She is tolerating the current medication regimen well. MENTAL STATUS: This morning, it is limited due to her lack of participation. She was rather short and terse and depressed. She was not agitated though in the sense of throwing food or attempting to strike out and did engage in conversation with me for the most part during the entire time I engaged her. PLAN: I will increase the Vraylar from 3 mg at bedtime to 4.5 mg at bedtime to further achieve benefits. I will renew her p.r.n. Ativan in case she requires intervention and check a valproic acid level in the a.m. to ensure that it is therapeutic. Engage in individual and shirley milieu activity, returning to the least restrictive environment when stable. TERRY RUELAS MD CM:PNTRANS [id number] TERRY RUELAS MD 07/27/17 1456 interface
--- NOTE | ~2017-07-20 | PR ---
[place], [place] PROGRESS NOTE NAME: DAQUAN MENDEZ UNIT #: [id number] ROOM: 317 DOCTOR: TERRY RUELAS MD BIRTHDATE: [birth year] DOS: 07/23/2017 CHIEF COMPLAINT: "Hi, how are you." SUMMARY OF THE VISIT: The patient was interviewed as she was sitting in a Zoila chair watching television. She engaged in brief superficial conversation. Nurses report yesterday; however, she was engaging in extreme self-injurious behavior, hitting her head repeatedly and also throwing herself to the ground. Mood seems wildly labile. MENTAL STATUS: She is alert and oriented to self, place, not necessarily to time. Mood does seem to be labile. Affect inappropriate. There is no presence of auditory or visual hallucinations. No delusions were voiced. No paranoia. Short-term memory has significant gaps. PLAN: Her valproic acid level is subtherapeutic at 43.6, so I will increase the dose from 500 mg twice a day to 500 mg 3 times a day, attempting to bring the level into the range of 60-80. I will increase Exelon patch from 4.6 to 9.5 mg daily trying to impact positively on ADL maintenance, behavior and cognition. I will discontinue Atarax as I do not believe that this is necessary at this time. Nurses will start utilizing ____ to increase her nutritional supplementation. We will continue to engage in individual and shirley milieu activity. resident services coordinator will explore the possibility of placement into a [facility] facility, which might be much more appropriate for her having her have peers that she can interact with and activities that are more geared towards her needs. We will discharge when psychiatrically stable. TERRY RUELAS MD CM:PNTRANS [phone] TERRY RUELAS MD 07/24/17 0308 interface
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
[~2017-07-20 22:45] MED LIST: CARBAMAZEPINE100 MG PO; CELEXA20 MG PO; COLACE100 MG PO; COUMADIN1 M1 PO; COUMADIN5 M2 PO; INVEGA9 MG PO; LIPITOR20 MG PO; LISINOPRIL5 MG PO; MIRTAZAPINE15 M2 PO; PHENOBARBITAL15 MG PO; QUETIAPINE FUM100 M3 PO; TYLENOL325 M1 PO; Tegretol-Xr 20200 MG PO; Vitamin D PO
[2017-07-21 02:09] VITALS: BP 116/60
[2017-07-21 07:30] LABS: INTERNATIONAL NORM RATIO 2.2 (2.0-3.5)
[2017-07-21 07:51] VITALS: BP 156/74
[2017-07-21 07:59] LABS: ALBUMIN 3.3 gm/dl (3.1-4.5); ALKALINE PHOSPHATASE 128 U/L (45-117); BUN 17 mg/dl (7-24); CHLORIDE 107 mmol/L (98-107); CHOLESTEROL 142 mg/dL (<200); CREATININE 0.87 mg/dL (0.55-1.02); HDL CHOLESTEROL 85 mg/dl (40-60); LDL CHOLESTEROL 38 mg/dL (9-159); POTASSIUM 3.4 mmol/L (3.5-5.1); SGOT/AST 14 IU/L (3-35); SGPT/ALT 15 U/L (12-78); SODIUM 142 mmol/L (136-145); TOTAL PROTEIN 6.8 gm/dL (6.4-8.2); TRIGLYCERIDES 93 mg/dl (<150); VLDL CHOLESTEROL 19 mg/dL (6-40)
[2017-07-21 20:00] VITALS: BP 113/66
[2017-07-22 08:25] VITALS: BP 153/74
[2017-07-22 20:00] VITALS: BP 115/59
[2017-07-23 08:18] VITALS: BP 134/71
[2017-07-23 20:27] VITALS: BP 102/68
[2017-07-24 08:24] VITALS: BP 136/70
[2017-07-24 20:00] VITALS: BP 112/68
[2017-07-25 08:10] VITALS: BP 117/67
[2017-07-25 20:00] VITALS: BP 108/62
[2017-07-26 06:16] LABS: INTERNATIONAL NORM RATIO 1.7 (2.0-3.5)
[2017-07-26 07:59] VITALS: BP 128/69
[2017-07-26 20:00] VITALS: BP 120/64
[2017-07-27 07:59] VITALS: BP 104/68
[2017-07-27 20:13] VITALS: BP 135/78
[2017-07-28 06:47] LABS: INTERNATIONAL NORM RATIO 2.3 (2.0-3.5)
[2017-07-28 08:04] VITALS: BP 122/69
[2017-07-28 20:00] VITALS: BP 113/62
[2017-07-29 07:37] LABS: HEMOGLOBIN 11.7 g/dl (12.0-16.0); MEAN CORPUSCULAR HGB 32.4 pg (27.0-31.0); MEAN CORPUSCULAR HGB CONC 33.4 g/dl (33.0-37.0); MEAN PLATELET VOLUME 10.6 fl (9.6-12.3); PLATELET COUNT AUTOMATED 192 10*3/uL (130-400); RED BLOOD COUNT 3.61 10*6/uL (4.10-5.10); RED CELL DISTRI WIDTH 12.6 % (0-14.5); WHITE BLOOD COUNT 12.7 10*3/uL (4.8-10.8)
[2017-07-29 08:03] LABS: INTERNATIONAL NORM RATIO 3.9 (2.0-3.5)
[2017-07-29 08:07] LABS: BUN 22 mg/dl (7-24); CHLORIDE 102 mmol/L (98-107); CREATININE 0.81 mg/dL (0.55-1.02); POTASSIUM 3.8 mmol/L (3.5-5.1); SODIUM 140 mmol/L (136-145); TOTAL CELLS COUNTED 100 #CELLS
[2017-07-29 08:09] LABS: PLATELET SUFFICIENCY NORMAL (NORMAL)
[2017-07-29 08:12] VITALS: BP 147/75
[2017-07-29 13:30] LABS: BILIRUBIN NEGATIVE (NEGATIVE); BLOOD 1+ (NEGATIVE); CLARITY CLOUDY (CLEAR); COLOR YELLOW (YELLOW); GLUCOSE NEGATIVE (NEGATIVE); KETONE NEGATIVE (NEGATIVE); LEUKO ESTERASE 2+ (NEGATIVE); NITRITE NEGATIVE (NEGATIVE); PH 5.5 (5.0-9.0); SPECIFIC GRAVITY 1.015 (1.005-1.030)
[2017-07-29 14:23] LABS: BACTERIA 2+; WBC 21-30 wbc/hpf (0-5)
[2017-07-29 19:56] VITALS: BP 112/60
[2017-07-30 08:29] LABS: INTERNATIONAL NORM RATIO 3.4 (2.0-3.5)
[2017-07-30 08:49] VITALS: BP 118/54
[2017-07-30 20:07] VITALS: BP 101/52
[2017-07-31 07:54] VITALS: BP 135/69
[2017-07-31 20:00] VITALS: BP 123/62
[2017-08-01 06:15] LABS: INTERNATIONAL NORM RATIO 1.8 (2.0-3.5)
[2017-08-01 08:00] VITALS: BP 132/68
[2017-08-01 20:43] VITALS: BP 128/61
[2017-08-02 08:01] LABS: INTERNATIONAL NORM RATIO 1.8 (2.0-3.5)
[2017-08-02 08:04] VITALS: BP 122/64
[2017-08-02 20:00] VITALS: BP 118/62
[2017-08-03 08:10] VITALS: BP 120/64
[2017-08-03 19:58] VITALS: BP 110/56
[2017-08-04 06:24] LABS: INTERNATIONAL NORM RATIO 1.8 (2.0-3.5)
[2017-08-04 08:05] VITALS: BP 112/72
[2017-08-04 20:18] VITALS: BP 108/66
[2017-08-05 08:11] VITALS: BP 110/67
[2017-08-05 08:13] LABS: INTERNATIONAL NORM RATIO 1.9 (2.0-3.5)
[2017-08-05] MEDS ORDERED: TRAZADONE HYDR100 MG PO (09:49)
[2017-08-05] MEDS ORDERED: EXELON13.3 MG/21 T (09:49)
[2017-08-05] MEDS ORDERED: Vitamin D PO (09:49)
[2017-08-05] MEDS ORDERED: NAMENDA-5 PO (09:49)
[2017-08-05] MEDS ORDERED: VRAYLAR3 MG PO (09:49)
[2017-08-05] MEDS ORDERED: TRIHEXYPHENIDYL2 M3 PO (09:49)
[2017-08-05] MEDS ORDERED: MEMANTINE HCL10 MG PO (09:49)
[2017-08-05] MEDS ORDERED: DIVALPROEX SOD125 M1 PO (09:49)
== END 2017-08-05 13:25 | disposition other institution (70) | DRG 885 ==
LOC: 3N 22:45
PROVIDERS: Family Medicine; Internal Medicine; Psychiatry & Neurology Psychiatry
DX: F25.9 Schizoaffective disorder, unspecified (principal); B37.0 Candidal stomatitis; D68.9 Coagulation defect, unspecified; I82.90 Acute embolism and thrombosis of unspecified vein; E87.5 Hyperkalemia; G30.9 Alzheimer's disease, unspecified; F02.80 Dementia in other diseases classified elsewhere, unspecified severity, without behavioral disturbance, psychotic disturbance, mood disturbance, and anxiety; R45.851 Suicidal ideations; F23 Brief psychotic disorder; F79 Unspecified intellectual disabilities; G40.909 Epilepsy, unspecified, not intractable, without status epilepticus; I10 Essential (primary) hypertension; T45.515A Adverse effect of anticoagulants, initial encounter; Y92.89 Other specified places as the place of occurrence of the external cause; Z86.718 Personal history of other venous thrombosis and embolism; E78.5 Hyperlipidemia, unspecified; Z88.6 Allergy status to analgesic agent

== ENCOUNTER 2018-01-13 16:43 | Inpatient (IN) | payer MEDICARE ==
[~2018-01-13] VITALS: Ht 170.1 cm; Wt 66.2 kg
--- NOTE | ~2018-01-13 | DS ---
[place], [place] DISCHARGE SUMMARY [id number] #: [id number] ROOM: 309 DOCTOR: TERRY RUELAS MD BIRTHDATE: [birth year] DOS: 01/16/2018 CHIEF COMPLAINT: The patient was nonverbal upon admission. HISTORY OF PRESENT ILLNESS: This is a 62-year-old white female known to me from previous admissions here to the [facility] as well as her extended stay at [facility]. The patient was admitted due to significant change in mental status. The patient had been attempting to elope the facility on multiple occasions requiring physical redirection. She has been engaging in excessive clapping and excessive pacing to the point where she is not sleeping at night and she is disruptive for the entire shirley milieu. Attempts to adjust her medications while at the [facility] have been unsuccessful and her behavior has gradually spiraled out of control to the point where she is putting both herself and others at significant risk for harm. She is admitted to rule out organic factors, to engage in individual and shirley milieu activity and to re-stabilize on medication. PAST MEDICAL HISTORY: Remarkable for GERD, hyperlipidemia, hypertension, DVT, mild mental retardation, normocytic anemia, prediabetes, seizure disorder, vitamin D deficiency and a history of bipolar disorder and dementia. SOCIAL HISTORY: She is not a cigarette smoker. She does not use illicit drugs or drink alcohol. SUMMARY OF THE HOSPITAL COURSE: The patient was admitted to the psychiatric unit where she was maintained on both Exelon patch 13.3 mg daily and Namenda 10 mg twice daily. Her trazodone trial and Depakote were all discontinued due to ineffectiveness and instead she was placed on Seroquel 50 mg 3 times daily. Additionally, her Nuedexta was discontinued because it did not impact positively on her clapping behavior or pacing. Screening examinations upon admission showed her to have a low vitamin B12 level of 224 and a low folic acid level of 5.23. Vitamin B12 injection of 1000 mcg IM monthly was started as well as Deplin 15 mg a day. With these changes in medication, she had an abrupt improvement within 24 hours. She became much more conversant, was able to have goal directed speech. While she still claps some, her pacing dissipated and her clapping decreased in both intensity and frequency. Because she had such a significant positive improvement, it was felt that returning her back to her place of residence would be the best course of action, this especially given the fact that I follow her along with one of my nurse practitioners on a routine basis. The patient was discharged back to [facility] on 01/16/2018. MENTAL STATUS AT DISCHARGE: She is alert and oriented to person, place, not time. Mood does seem to be more euthymic. Affect more appropriate. There is no orlando or hypomania. There are no gross psychotic symptoms. Short-term memory continues to be problematic, but otherwise she is intact. FINAL DIAGNOSIS: Schizoaffective disorder. DISPOSITION: The patient is to be readmitted back to [facility] at [place], [place] DISCHARGE SUMMARY [facility] [id number] UNIT #: [id number] ROOM: 309 DOCTOR: TERRY RUELAS MD BIRTHDATE: [birth year] [place]. She is medically and psychiatrically stable. Her biopsychosocial needs are adequately being met by the facility. I will be her psychiatrist of record post-discharge. TERRY RUELAS MD CM:DISCHARG [phone] TERRY RUELAS MD 01/16/18 0942 interface
--- NOTE | ~2018-01-13 | CON ---
[place], [place] REPORT OF CONSULTATION NAME: [id number] UN[facility] #: [id number] ROOM: 309 DOCTOR: HOWARD BECKER MD BIRTHDATE: [birth year] DOS: 01/15/2018 GASTROENTEROLOGY CONSULTATION HISTORY OF PRESENT ILLNESS: This is a 62-year-old patient who was admitted to the psych floor and I have been asked for evaluation of the patient with profound weight loss and apparently, based on interviewing the nursing staff, she has been eating adequate calorie and she has been followed in [place] with her night supervisor. She has had colonoscopy done as late as last year with not much of information and apparently unremarkable. She has had studies done, I am not sure, including CT scan of the abdomen, chest x-ray, and basic screening for etiologies of weight loss. I am comfortable to say that most likely if there has been Gastroenterology followup that has been already done. The patient with advanced Alzheimer, she cannot comprehend my questions. She either answers yes or she does not know what diarrhea means. She is showing me her back and says my belly hurts to the question of if you have abdominal pain. So, the history taking is unreliable entirely. I have entirely relied on the old records on the chart and nursing communication. PAST MEDICAL HISTORY: Alzheimer's dementia, bipolar with manic element mostly, hypertension, hyperlipidemia, and underlying mental retardation. She used to have history of thrush, seizure disorder. Schizoid disorder has been in her records as well. PAST SURGICAL HISTORY: D and C, cholecystectomy, and hysterectomy. SOCIAL HISTORY: Nonsmoker, nonalcohol consumer. FAMILY HISTORY: Noncontributory. ALLERGIES: ASPIRIN. MEDICATIONS: List has been reviewed including warfarin and others as well reviewed. REVIEW OF SYSTEMS: Cannot be meaningfully obtained from her at all. PHYSICAL EXAMINATION: VITAL SIGNS: Stable. HEENT: Appears to be benign, nontraumatic. Mouth and buccal mucosa appear to be fresh. Eyes: No scleral icterus. NECK: Supple. LUNGS: Vesicular breath sounds bilaterally auscultated. HEART: Normal sinus rhythm. No gallop or no murmur auscultated at the time of my exam. ABDOMEN: Soft. EXTREMITIES: Benign. No edema. NEUROLOGIC: Alert and sitting up apparently after her dinner and she is clapping as one of her gestures of being busy in her mind and had advanced dementia. [place], [place] REPORT OF CONSULTATION NAME: DAQUAN MENDEZ UNIT #: [id number] ROOM: 309 DOCTOR: ROSITA DOUGLAS,HOWARD BIRTHDATE: [birth year] DIAGNOSTIC STUDIES: Labs reviewed, records reviewed. Serum ammonia was normal. Liver function test was normal. INR appropriate. There is GFR greater than 60 and RPR was negative in her records. Her CBC differential initially was 13 white blood cells plus H and H of 12 and 36. Urinalysis was unremarkable. PLAN AND DISCUSSION: I believe this patient is adequately taken care of if she has had weight loss of 36 pounds. I do not have any documentation, but I have to believe that it has to be secondary to consumption of lower number of calories. On the other hand, since the previous data is unavailable to me, I do not want to start a new investigation since she is going to be here apparently till tomorrow morning and this is tonight that I am seeing her. She appears to be stable medically and clinically and I defer her to her past Gastroenterology Services since they may have the information about CT scans and blood works that would be redundant if I want to reopen the investigation tonight. In general, for the category of age, disease, and mental capability, she looks good to me. Thank you very much indeed. I will defer due to the fact that her hemoglobin A1c is 5.6 and so, it would not be much of diabetic or pancreatic issues of concern. HOWARD BECKER MD CM:CONSTR:REPORT OF CONSULTATION 1843 01/16/18 0603 interface
--- NOTE | ~2018-01-13 | WRIGHTHP ---
[place], [place] PATIENT HISTORY AND PHYSICAL EXAM NAME: [facility] [id number] UNIT #: [id number] ROOM: 309 DOCTOR: TERRY RUELAS MD BIRTHDATE: [birth year] DOS: 01/14/2018 PSYCHIATRIC EVALUATION CHIEF COMPLAINT: The patient was nonverbal. HISTORY OF PRESENT ILLNESS: This is a 62-year-old white female known to me from previous admissions here to the [facility] [place] [facility] as well as her extended stay at [facility]. The patient is admitted now due to significant change in mental status. The patient has been repeatedly attempting to elope the facility requiring physical redirection back into the facility. She has been engaging in excessive clapping and excessive pacing to the point where she is not sleeping at night, but is disruptive in the hallway clapping and pacing back and forth. Attempts to adjust her medication while at the [facility] have been unsuccessful and her behavior has gradually spiraled out of control to the point where she is putting herself and others at significant risk of harm. She is admitted now to rule out organic factors, to stabilize on medication and to engage in individual and shirley milieu activity. PAST MEDICAL HISTORY: Remarkable for GERD, hyperlipidemia, hypertension, history of DVT, mild mental retardation, normocytic anemia, prediabetes, seizure disorder, vitamin D deficiency and a history of both bipolar disorder and dementia. SOCIAL HISTORY: The patient does not drink alcohol, smoke cigarettes, use smokeless tobacco or use illicit drugs. She does have a listed allergy to aspirin. STRENGTHS: Normally good verbal skills and ambulatory. WEAKNESSES: Cognitive impairment and long-term psychiatric disorder. MENTAL STATUS: The patient is alert and oriented to self. Beyond that, the patient did not cooperate with her mental status exam and did not even sit still long enough to attempt to be engaged in conversation. The patient instead stared blankly past me and continued to pace. There was no agitation directed towards me. Could not test further because of her lack of cooperation. DIAGNOSES: Schizoaffective disorder and Alzheimer's dementia. PLAN: The patient is maintained on Namenda 10 mg b.i.d., Exelon patch 13.3 mg a day. I have discontinued her trazodone, her Vraylar and her Depakote due to ineffectiveness and started her on Seroquel 50 mg t.i.d. I likewise have also discontinued her Nuedexta due to ineffectiveness. Screening examinations upon admission show her to have a low vitamin B12 level of 224. I will treat with vitamin B12 injection of 1000 mcg IM monthly. Her folic acid level likewise is low at 5.23. I will treat with Deplin 15 mg daily. We will attempt to engage in individual and shirley milieu activity, returning to the least restrictive environment when psychiatrically stable. [place], [place] PATIENT HISTORY AND PHYSICAL EXAM NAME: DAQUAN MENDEZ UNIT #: [id number] ROOM: 309 DOCTOR: TERRY RUELAS MD BIRTHDATE: [birth year] TERRY RUELAS MD CM:HISPHYS:PATIENT HISTORY AND PHYSICAL EXAMINATION [phone] TERRY RUELAS MD 01/14/18 1029 interface
--- NOTE | ~2018-01-13 | PN ---
[place], [place] PROGRESS NOTE NAME: DAQUAN MENDEZ UNIT #: [id number] ROOM: 309 DOCTOR: TERRY RUELAS MD BIRTHDATE: [birth year] DATE: 01/15/18 ADDENDUM 02/27/18932 DR. RUELAS: Above note reviewed. Agree with observations, recommendations, and overall treatment plan. TERRY RUELAS MD CM:PNTRANS 2 5 TERRY RUELAS MD 02/28/1836 JESUSITA BLUNT MIS.LLR
[~2018-01-13 16:43] MED LIST changes: +DIVALPROEX SOD125 M1 PO; +EXELON13.3 MG/21 T; +MEMANTINE HCL10 MG PO; +NAMENDA-5 PO; +TRAZADONE HYDR100 MG PO; +TRIHEXYPHENIDYL2 M3 PO; +VRAYLAR3 MG PO
[2018-01-13] MEDS ORDERED: COUMADIN5 M2 PO (17:24)
[2018-01-13] MEDS ORDERED: Coumadin7.5 MG PO (17:25)
[2018-01-13] MEDS ORDERED: ZYPREXA5 M1 PO (17:26)
[2018-01-13] MEDS ORDERED: NUED1CAP PO (17:26)
[2018-01-13] MEDS ORDERED: NAMENDA10 MG PO (17:27)
[2018-01-13] MEDS ORDERED: DOCUSATE S100 MG/10 PO (17:27)
[2018-01-13] MEDS ORDERED: NAMENDA-5 PO (17:28)
[2018-01-13] MEDS ORDERED: ATIVAN0.5 MG PO (17:29)
[2018-01-13] MEDS ORDERED: GAS RELIEF 8080 MG PO (17:31)
[2018-01-13] MEDS ORDERED: OMEPRAZOLE20 M2 PO (17:32)
[2018-01-13] MEDS ORDERED: VITAMIN D50000 UNIT PO (17:32)
[2018-01-13] MEDS ORDERED: REMERON15 M2 PO (17:33)
[2018-01-13 18:33] VITALS: BP 128/85
[2018-01-13 18:36] VITALS: BP 128/85
[2018-01-13 19:52] VITALS: BP 128/85
[2018-01-14 06:09] LABS: HEMATOCRIT 36.1 % (37.0-47.0); HEMOGLOBIN 12.1 g/dl (12.0-16.0); MEAN CELL VOLUME 96.8 fl (81.0-99.0); MEAN CORPUSCULAR HGB 32.4 pg (27.0-31.0); MEAN CORPUSCULAR HGB CONC 33.5 g/dl (33.0-37.0); MEAN PLATELET VOLUME 11.3 fl (9.6-12.3); PLATELET COUNT AUTOMATED 155 10*3/uL (130-400); RED BLOOD COUNT 3.73 10*6/uL (4.10-5.10); RED CELL DISTRI WIDTH 12.9 % (0-14.5); WHITE BLOOD COUNT 13.5 10*3/uL (4.8-10.8)
[2018-01-14 06:23] LABS: ALBUMIN 3.3 gm/dl (3.1-4.5); ALKALINE PHOSPHATASE 73 U/L (45-117); BUN 17 mg/dl (7-24); CHLORIDE 113 mmol/L (98-107); CHOLESTEROL 108 mg/dL (<200); CREATININE 0.78 mg/dL (0.55-1.02); HDL CHOLESTEROL 55 mg/dl (40-60); LDL CHOLESTEROL 32 mg/dL (9-159); POTASSIUM 3.9 mmol/L (3.5-5.1); SGOT/AST 12 IU/L (3-35); SGPT/ALT 15 U/L (12-78); SODIUM 149 mmol/L (136-145); TOTAL PROTEIN 6.3 gm/dL (6.4-8.2); TRIGLYCERIDES 104 mg/dl (<150); VLDL CHOLESTEROL 21 mg/dL (6-40)
[2018-01-14 06:32] LABS: PLATELET SUFFICIENCY NORMAL (NORMAL); TOTAL CELLS COUNTED 100 #CELLS
[2018-01-14 06:42] LABS: INTERNATIONAL NORM RATIO 1.6 (2.0-3.5)
[2018-01-14 07:30] LABS: VITAMIN D, 25-HYDROXY 52.5 ng/mL (30-100)
[2018-01-14 07:40] VITALS: BP 125/82
[2018-01-14 20:09] VITALS: BP 109/69
[2018-01-15 07:01] LABS: INTERNATIONAL NORM RATIO 1.4 (2.0-3.5)
[2018-01-15 07:47] VITALS: BP 137/65
[2018-01-15 09:32] LABS: BILIRUBIN NEGATIVE (NEGATIVE); BLOOD NEGATIVE (NEGATIVE); CLARITY SL CLOUDY (CLEAR); COLOR YELLOW (YELLOW); GLUCOSE NEGATIVE (NEGATIVE); KETONE NEGATIVE (NEGATIVE); LEUKO ESTERASE TRACE (NEGATIVE); NITRITE NEGATIVE (NEGATIVE); PH 6.5 (5.0-9.0); SPECIFIC GRAVITY <= 1.005 (1.005-1.030)
[2018-01-15 10:40] LABS: WBC 21-30 wbc/hpf (0-5)
[2018-01-15 10:41] LABS: BACTERIA TRACE
[2018-01-15 20:02] VITALS: BP 120/67
[2018-01-16 07:02] LABS: INTERNATIONAL NORM RATIO 1.4 (2.0-3.5)
[2018-01-16 07:18] VITALS: BP 123/79
[2018-01-16] MEDS ORDERED: EXELON13.3 MG/21 T (08:09)
[2018-01-16] MEDS ORDERED: QUETIAPINE FUMA25 MG PO (08:09)
[2018-01-16] MEDS ORDERED: MEMANTINE HCL10 MG PO (08:09)
[2018-01-16] MEDS ORDERED: MIRTAZAPINE15 M2 PO (08:09)
[2018-01-16] MEDS ORDERED: B121000 MCG/1 IM (10:36)
[2018-01-16] MEDS ORDERED: EXELON13.3 MG/21 TD (12:38)
== END 2018-01-16 14:10 | disposition other institution (70) | DRG 885 ==
LOC: 3N 16:43
PROVIDERS: Internal Medicine; Psychiatry & Neurology Psychiatry
DX: F25.9 Schizoaffective disorder, unspecified (principal); E87.8 Other disorders of electrolyte and fluid balance, not elsewhere classified; I82.90 Acute embolism and thrombosis of unspecified vein; E87.0 Hyperosmolality and hypernatremia; F02.81 Dementia in other diseases classified elsewhere, unspecified severity, with behavioral disturbance; E44.1 Mild protein-calorie malnutrition; F33.9 Major depressive disorder, recurrent, unspecified; G30.9 Alzheimer's disease, unspecified; R79.1 Abnormal coagulation profile; D72.829 Elevated white blood cell count, unspecified; F70 Mild intellectual disabilities; D64.9 Anemia, unspecified; E55.9 Vitamin D deficiency, unspecified; I10 Essential (primary) hypertension; G40.909 Epilepsy, unspecified, not intractable, without status epilepticus; K21.9 Gastro-esophageal reflux disease without esophagitis; R73.03 Prediabetes; E78.5 Hyperlipidemia, unspecified; Z86.718 Personal history of other venous thrombosis and embolism; Z90.49 Acquired absence of other specified parts of digestive tract; Z90.710 Acquired absence of both cervix and uterus; Z88.6 Allergy status to analgesic agent; Z83.3 Family history of diabetes mellitus; Z79.01 Long term (current) use of anticoagulants; Z68.22 Body mass index [BMI] 22.0-22.9, adult

== ENCOUNTER 2018-01-20 13:10 | Inpatient (IN) | payer MEDICARE ==
[~2018-01-20] VITALS: Ht 167.6 cm; Wt 64.9 kg
--- NOTE | ~2018-01-20 | WRIGHTHP ---
[place], [place] PATIENT HISTORY AND PHYSICAL EXAM [facility]: [id number] UNIT #: [id number] ROOM: 310 DOCTOR: TERRY RUELAS MD BIRTHDATE: [birth year] DOS: 01/21/2018 INITIAL PSYCHIATRIC EVALUATION CHIEF COMPLAINT: No. HISTORY OF PRESENT ILLNESS: This is a 62-year-old white female who was readmitted to the [facility] following a significant change in mental status. The patient was just discharged from the [facility] unit on January 16, returning to [facility]. However, it appears that upon readmission to [facility], she was restarted on some of the medications that were discontinued during her most recent stay, complicating matter significantly. The patient had her trazodone, Depakote and Nuedexta discontinued during her most recent stay, but these were restarted along with Zyprexa. The patient had a significant decline in mental status, becoming somewhat somnolent at times, alternating with periods of extreme agitation and extreme pacing. The patient was also beginning to exit seek once again while at [facility]. Attempts to redirect her when she was exit seeking were only met by her becoming physically combative with staff. Because of the significant decompensation, the patient was readmitted to the [facility] to attempt to re-stabilize on medication to engage in individual and shirley milieu activity, returning then to the least restrictive environment when psychiatrically stable. PAST MEDICAL HISTORY: Remarkable for Alzheimer's dementia, GERD, hyperlipidemia, hypertension, mild MR, normocytic anemia, prediabetes, seizure disorder, vitamin D deficiency and a history of DVT. PAST SOCIAL HISTORY: The patient does not drink alcohol, consume illicit drugs or smoke cigarettes. ALLERGIES: She lists allergies to ASPIRIN. STRENGTHS: Ambulatory, good verbal skills. WEAKNESSES: Cognitive decline and poor coping skills. MENTAL STATUS: She is alert and oriented to self, place, uncertain time. Today, she was not very cooperative. In the past, she has been more communicative. Today, all she said was the word no and then began clapping quietly. There was no agitation directed towards me or others. Beyond that, I could not assess mental status due to her lack of un-cooperation. DIAGNOSIS: Schizoaffective disorder. PLAN: I have discontinued much of the redundant medications that were once again restarted at [facility] and chose instead to start her on Fanapt 1 mg twice daily, which I will increase to 2 mg twice daily. The Fanapt has a very favorable side effect profile, especially with a low risk of akathisia and extrapyramidal symptoms. She does seem to be somewhat prone to developing akathisia. This should at least decrease the drive to pace. We will [place], [place] PATIENT HISTORY AND PHYSICAL EXAM NAME: [facility] [id number] UNIT #: [id number] ROOM: 310 DOCTOR: TERRY RUELAS MD BIRTHDATE: [birth year] also explore alternative placements to see if this is an option that would make her happier in the long run, engage in individual and shirley milieu activity, returning then to the least restrictive environment when psychiatrically stable. TERRY RUELAS MD CM:HISPHYS:PATIENT HISTORY AND PHYSICAL EXAMINATION [id number] TERRY RUELAS MD 01/21/18 0939 interface
--- NOTE | ~2018-01-20 | DS ---
[place], [place] DISCHARGE SUMMARY NAME[id number] UNIT #: [id number] ROOM: 310 DOCTOR: TERRY RUELAS MD BIRTHDATE: [birth year] DOS: 01/23/2018 CHIEF COMPLAINT: "No." HISTORY OF PRESENT ILLNESS: This is a 62-year-old white female who was readmitted to the [facility] following a significant change in mental status. The patient was just discharged from the [facility] on 01/16/2018 and returned then on 01/20/2018. While at [facility], she had been restarted on some of her previously discontinued medications. This resulted in her declining significantly to the point where she was somnolent at times, alternating with periods of extreme agitation and pacing and exit seeking behavior. Because of the severe decompensation, she was readmitted to the [facility] to further stabilize on medication, to engage in individual and shirley milieu activity, returning to the least restrictive environment when stable. PAST MEDICAL HISTORY: Remarkable for Alzheimer's dementia, GERD, hyperlipidemia, hypertension, mild MR, normocytic anemia, prediabetes, seizure disorder, vitamin D deficiency and a history of DVT with ALLERGIES LISTED TO ASPIRIN. SUMMARY OF HOSPITAL COURSE: The patient was admitted to the unit where she was started on Fanapt 1 mg twice daily. The dose was gradually increased during her stay to its maximum of 4 mg twice daily. Fanapt was utilized for its low extrapyramidal side effect profile. She does seem to be very prone to developing both tremor and akathisia from antipsychotics. With the Fanapt on board, neither of these occurred. The patient did become much more pleasant and cooperative. She was not exit seeking or when she was she redirected with verbal prompts alone. Efforts were made to find her an alternative placement, which she was very happy about and she was ultimately sent then to [facility] to have future followup by myself. MENTAL STATUS AT DISCHARGE: She is alert and oriented to self, place, not necessarily time. Mood does seem to be more euthymic. Affect is much more appropriate. There is no mood lability noted. No agitation, no hypomania or [place]. No gross psychotic symptoms. Short term memory continues to be problematic. DIAGNOSIS AT DISCHARGE: Schizoaffective disorder. DISPOSITION: To be admitted to [facility] in [place], [place]. Her prescriptions have been printed and will be sent with her. She is medically and psychiatrically stable. Her biopsychosocial needs are adequately being met by the facility at large and I will be the treating physician upon her admission to [facility]. [place], [place] DISCHARGE SUMMARY NAME: DAQUAN MENDEZ UNIT #: [id number] ROOM: 310 DOCTOR: TERRY RUELAS MD BIRTHDATE: [birth year] TERRY RUELAS MD CM:DISCHARG [id number] TERRY RUELAS MD 01/23/18 1728 interface
[~2018-01-20 13:10] MED LIST changes: +ATIVAN0.5 MG PO; +B121000 MCG/1 IM; +Coumadin7.5 MG PO; +DOCUSATE S100 MG/10 PO; +EXELON13.3 MG/21 TD; +GAS RELIEF 8080 MG PO; +NAMENDA10 MG PO; +NUED1CAP PO; +OMEPRAZOLE20 M2 PO; +QUETIAPINE FUMA25 MG PO; +REMERON15 M2 PO; +VITAMIN D50000 UNIT PO; +ZYPREXA5 M1 PO
[2018-01-20] MEDS ORDERED: HYDROXYZINE HCL50 MG PO (15:12)
[2018-01-20 17:09] VITALS: BP 138/91
[2018-01-20 17:42] VITALS: BP 120/80
[2018-01-20 18:26] LABS: BILIRUBIN NEGATIVE (NEGATIVE); BLOOD 1+ (NEGATIVE); CLARITY CLEAR (CLEAR); COLOR YELLOW (YELLOW); GLUCOSE NEGATIVE (NEGATIVE); KETONE TRACE (NEGATIVE); LEUKO ESTERASE TRACE (NEGATIVE); NITRITE NEGATIVE (NEGATIVE); PH 5.5 (5.0-9.0); SPECIFIC GRAVITY >= 1.030 (1.005-1.030); UROBILINOGEN 0.2 E.U./dl (0.2-1.0)
[2018-01-20 18:33] LABS: BACTERIA 1+
[2018-01-20 20:03] VITALS: BP 120/78
[2018-01-21 06:22] LABS: ALBUMIN 3.5 gm/dl (3.1-4.5); ALKALINE PHOSPHATASE 78 U/L (45-117); BUN 27 mg/dl (7-24); CHLORIDE 108 mmol/L (98-107); CHOLESTEROL 93 mg/dL (<200); CREATININE 0.91 mg/dL (0.55-1.02); HDL CHOLESTEROL 68 mg/dl (40-60); LDL CHOLESTEROL 14 mg/dL (9-159); POTASSIUM 3.7 mmol/L (3.5-5.1); SGOT/AST 11 IU/L (3-35); SGPT/ALT 16 U/L (12-78); SODIUM 143 mmol/L (136-145); TOTAL PROTEIN 6.5 gm/dL (6.4-8.2); TRIGLYCERIDES 53 mg/dl (<150); VLDL CHOLESTEROL 11 mg/dL (6-40)
[2018-01-21 06:24] LABS: INTERNATIONAL NORM RATIO 1.7 (2.0-3.5)
[2018-01-21 07:46] LABS: VITAMIN D, 25-HYDROXY 56.5 ng/mL (30-100)
[2018-01-21 07:52] VITALS: BP 117/65
[2018-01-21 20:01] VITALS: BP 115/75
[2018-01-22 06:53] LABS: INTERNATIONAL NORM RATIO 1.7 (2.0-3.5)
[2018-01-22 08:07] VITALS: BP 121/68
[2018-01-22 20:00] VITALS: BP 110/57; BP 121/68
[2018-01-23 07:11] LABS: INTERNATIONAL NORM RATIO 1.8 (2.0-3.5)
[2018-01-23 07:44] VITALS: BP 124/69
[2018-01-23] MEDS ORDERED: EXELON13.3 MG/21 T (10:56)
[2018-01-23] MEDS ORDERED: MEMANTINE HCL10 MG PO (10:56)
[2018-01-23] MEDS ORDERED: B121000 MCG/1 IM (10:56)
[2018-01-23] MEDS ORDERED: FANAPT4 MG PO (10:56)
== END 2018-01-23 13:15 | DRG 885 ==
LOC: 3N 13:10
PROVIDERS: Psychiatry & Neurology Psychiatry
DX: F25.9 Schizoaffective disorder, unspecified (principal); G30.9 Alzheimer's disease, unspecified; F02.80 Dementia in other diseases classified elsewhere, unspecified severity, without behavioral disturbance, psychotic disturbance, mood disturbance, and anxiety; R73.03 Prediabetes; E55.9 Vitamin D deficiency, unspecified; F70 Mild intellectual disabilities; E78.5 Hyperlipidemia, unspecified; I10 Essential (primary) hypertension; F31.9 Bipolar disorder, unspecified; K21.9 Gastro-esophageal reflux disease without esophagitis; G40.909 Epilepsy, unspecified, not intractable, without status epilepticus; Z88.6 Allergy status to analgesic agent; Z86.718 Personal history of other venous thrombosis and embolism; Z79.01 Long term (current) use of anticoagulants; Z79.899 Other long term (current) drug therapy